=== PATIENT | female | born 1950 | race African-American/Black ===

== ENCOUNTER 2018-01-17 13:36 | Inpatient (IN) | payer MEDICARE, MEDICAID ==
[2018-01-17 15:35] VITALS: BP 118/59
[2018-01-17] MEDS ORDERED: Magnesium Hydroxide (MOM) 30 mL UDC PO PRN (15:36)
[2018-01-17] MEDS ORDERED: Maalox 30 mL Cup PO PRN (15:36)
[2018-01-17] MEDS: Insulin Detemir 100 units/mL 10mL Vial SUBQ SCH (21:28)
[2018-01-18] MEDS: Atorvastatin Calcium 10 MG TAB PO SCH (08:28)
[2018-01-18] MEDS: Multivitamin Tab PO SCH (08:28)
[2018-01-18] MEDS: Ferrous Sulfate 325 MG TAB PO SCH (08:29)
--- NOTE | 2018-01-18 09:34 | History and Physical ---
History of Present Illness - HPI Chief Complaint: not eating or drinking HPI: Patient was taking to hospital due that she was not eating, drinking or taking her meds. Vital Signs: Last Vital Signs Temp 98.2 F 01/18/18 07:03 Pulse 74 01/18/18 08:29 Resp 19 01/18/18 07:03 BP 112/64 01/18/18 08:29 Pulse Ox 96 01/18/18 07:03 Past Medical History Cardiovascular: Report: CAD, HTN Pulmonary: Report: No Pertinent Hx SUCTION ROLLER: Report: Dementia, Other (Legally blind) GI: Report: No Pertinent Hx Psych: Report: Psychosis Musculoskeletal: Report: No Pertinent Hx Rheumatologic: Report: No pertinent Hx Infectious Disease: Report: No Pertinent Hx Renal/: Report: Chronic Renal Insuff Endocrine: Report: No Pertinent Hx Dermatology: Report: No Pertinent Hx - Past Surgical History Past Surgical History: No pertinent Hx Social History Smoke: No Alcohol: None Drugs: None Lives: With Family Domestic Violence: Negative - Allergies Allergies/Adverse Reactions: Allergies Allergy/AdvReac Type Severity Reaction Status Date / Time No Known Allergies Allergy Verified 01/17/18 15:17 Review of Systems - Review of Systems Constitutional: Report: No Significant Eyes: Report: No Significant ENT: Report: No Significant Respiratory: Report: No Significant Cardiovascular: Report: No Significant Gastrointestinal: Report: No Significant Genitourinary: Report: No Significant Musculoskeletal: Report: No Significant Skin: Report: No Significant Neurological: Report: No Significant Physical Exam - Physical Exam HEENT: Report: Ears Nose Throat within normal limits, Other (Patient blind) Neck: Report: Within normal limits Cardiovascular Systems: Report: Regular, Rate and Rhythm Respiratory: Report: Breath Sounds are within normal limits Abdomen: Report: Non-tender to palpation Back: Report: Inspection of back is within normal limits. Extremities: Report: Non-tender to palpation. Skin: Report: Color of skin is within normal limits, Warm, Dry Neuro/Psych: Report: Disoriented to name time or place - Lab Results All Lab Results last 24 hours: Laboratory Results - last 24 hr 01/17/18 21:01 POC Glucose 141 H - Assessment Assessment: Patient is awake, alert, confused. Dx: Psychosis, Dementia, Legally blind, HTN, CKD. - Plan Plan: Patient is under Psychiatric care, will continue with Home meds. Will continue to monitor.
--- NOTE | 2018-01-18 15:11 | History & Physical ---
ADMIT DATE: 01/17/2018 IDENTIFYING INFORMATION: The patient is a 67-year-old female. CHIEF COMPLAINT: No answer. HISTORY OF PRESENT ILLNESS: The patient was brought on a hold for grave disability. The patient was brought on the hold and the [facility] person wanted to do a well-check on her and the patient was noted to be completely declining, unable to provide for self-care. She was unable to make safe plan for self-care, take care of herself, full of feces. Unable to clean herself and not allowing people to clean her. Drinks only fluids, has not eaten for a while, not willing to make plan for self-care. When I talked to her, she was not sure why she was here, unable to give information. She could not tell me the date. She said that she is crazy. She said she drinks vodka once a week, no more than that, but she is not a reliable historian, unpredictable, impulsive, demented, and confused, she said she is not. PAST PSYCHIATRIC HISTORY: ____ she seems to take Prozac, but she is not sure of the dose. She denies prior suicide attempt or prior hospitalization; however, she is not a good historian. She reports she is crazy. MEDICAL HISTORY: According to Dr. Ragland who evaluated her, the patient is legally blind, hypertension, coronary artery disease. ALLERGIES: The patient has no known drug allergies. MEDICATIONS: Amlodipine 10 mg daily, atorvastatin 20 mg daily, Aricept 10 mg at bedtime, iron 325 mg daily, Prozac 20 mg daily. She is also on insulin and metoprolol 25 mg twice a day, multivitamin daily, Ropinirole 1 mg daily, and Januvia 100 mg daily. FAMILY AND SOCIAL HISTORY: She is and not able to tell me how long. She has two girls. She is unsure of their age. 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 She denies family psychiatric disorder, but she is not a very good historian. MENTAL STATUS EXAMINATION: The patient is appropriately dressed, not well groomed. She was in bed, feeding herself. She was somewhat irritable. She knew that she was 67 years of age. Unable to tell me date of . She has not been eating or taking care of herself. She was covered with feces, would not clean herself, unable to make safe plan for self-care. Gravely disabled, unpredictable, impulsive, demented, confused. Long and short term memory is poor. Insight and judgment is impaired. When asked about hallucination, she denies. Current suicide, homicide ideation, denies; however, she is an unreliable historian. Insight and judgment is impaired. IMPRESSION: AXIS I: Major depression, recurrent, with no psychosis; dementia. MEDICAL DIAGNOSES: Diabetes mellitus, hyperlipidemia, hypertension, anemia, coronary artery disease. Her assets, she wants to get help. Negative for coping skills. INITIAL TREATMENT PLAN: [facility] We will adjust medication as needed. We will do group therapy, milieu therapy, and individual therapy. ESTIMATED LENGTH OF STAY: 3-7 days. DISCHARGE CRITERIA: Decrease in depression ____. JOB# [id number]
[2018-01-18] MEDS: Insulin Detemir 100 units/mL 10mL Vial SUBQ SCH (21:39)
[2018-01-19 07:17] LABS: % BASOPHILS 0.9 % (0.0-2.0); % EOSINOPHILS 3.2 % (0.0-5.0); % LYMPHOCYTES 33.8 % (20.0-50.0); % MONOCYTES 10.6 % (2.0-10.0); % NEUTROPHILS 51.5 % (40.0-80.0); BASOPHILE ABSOLUTE 0.1 Th/cumm (0-0.2); EOSINOPHILE ABSOLUTE 0.2 Th/cmm (0.1-0.4); HEMATOCRIT 27.9 % (41.0-60); HEMOGLOBIN 9.5 gm/dL (12-16); LYMPHOCYTE ABSOLUTE 2.5 Th/cmm (1.5-3.0); MEAN CELL VOLUME 90.5 fl (81-100); MEAN CORPUSCULAR HEMOGLOBIN 30.8 pg (27.0-31.0); MEAN PLATELET VOLUME 7.3 fl; MONOCYTE ABSOLUTE 0.8 Th/cmm (0.3-1.0); NEUTROPHILE ABSOLUTE 3.7 Th/cmm (1.8-8.0); PLATELET COUNT 433 Th/cmm (150-400); RED BLOOD COUNT 3.08 Mil/cmm (3.80-5.20); RED CELL DISTRIBUTION WIDTH 12.8 % (11.5-20.0); WHITE BLOOD COUNT 7.3 Th/cmm (4.8-10.8)
[2018-01-19 07:34] LABS: ALB/GLOB RATIO 1.2 (1.0-1.8); ALBUMIN 3.4 gm/dL (3.7-5.3); BILIRUBIN,TOTAL 0.4 mg/dL (0.3-1.0); CARBON DIOXIDE 25.3 mEq/L (21.0-31.0); CREATININE - SERUM 2.3 mg/dL (0.6-1.2); GFR AFRICAN-AMERICAN 27.4 ml/min (>90); GFR NON AFRICAN-AMERICAN 22.6 ml/min; POTASSIUM SERUM 4.3 mEq/L (3.5-5.1); TOTAL PROTEIN,SERUM 6.3 gm/dL (6.0-8.3)
[2018-01-19 07:35] LABS: CHOLESTEROL 121 mg/dL (<200); HDL -HIGH DENSITY LIPOPROTEIN 26 mg/dL (23-92); TRIGLYCERIDES 153 mg/dL (<150)
[2018-01-19] MEDS: Multivitamin Tab PO SCH (09:02)
[2018-01-19] MEDS: Atorvastatin Calcium 10 MG TAB PO SCH (09:02)
[2018-01-19] MEDS: Ferrous Sulfate 325 MG TAB PO SCH ×2 (09:03→17:19)
[2018-01-19 18:30] LABS: A1C % 6.7 % (4.0-6.0)
--- NOTE | 2018-01-19 19:05 | Progress Notes ---
DATE: 01/19/2018 Case was discussed with staff of the patient, reviewed records. The patient has been isolating herself. Continues to have poor insight. When I asked her ____ why she was here, she said because of her stomach. Continues to be unpredictable, impulsive, unable to take care of herself or make safe plan for self-care, unable to give accurate information, isolating herself. She was started back on the Prozac and I will be adding Aricept to her medication to help improve her memory and so far no side effects, no sedation, no nausea. We will continue to work with the patient in group therapy, milieu therapy, and adjust the medications as needed. JOB# [id number]
[2018-01-19] MEDS: Insulin Detemir 100 units/mL 10mL Vial SUBQ SCH (20:37)
[2018-01-20] MEDS: Ferrous Sulfate 325 MG TAB PO SCH ×3 (08:56→17:15)
[2018-01-20] MEDS: Atorvastatin Calcium 10 MG TAB PO SCH (08:57)
[2018-01-20] MEDS: Multivitamin Tab PO SCH (08:57)
--- NOTE | 2018-01-20 09:40 | General Progress Note ---
Subjective - Review of Systems Service Date: 01/20/18 Subjective: Patient confused Objective - Results Result Diagrams: 01/19/18 06:48 01/19/18 06:48 Recent Labs: Laboratory Last Values WBC 7.3 Th/cmm (4.8-10.8) 01/19/18 06:48 RBC 3.08 Mil/cmm (3.80-5.20) L 01/19/18 06:48 Hgb 9.5 gm/dL (12-16) L 01/19/18 06:48 Hct 27.9 % (41.0-60) L 01/19/18 06:48 MCV 90.5 fl (81-100) 01/19/18 06:48 MCH 30.8 pg (27.0-31.0) 01/19/18 06:48 MCHC Differential 34.0 pg (28.0-36.0) 01/19/18 06:48 RDW 12.8 % (11.5-20.0) 01/19/18 06:48 Plt Count 433 Th/cmm (150-400) H 01/19/18 06:48 MPV 7.3 fl 01/19/18 06:48 Neutrophils % 51.5 % (40.0-80.0) 01/19/18 06:48 Lymphocytes % 33.8 % (20.0-50.0) 01/19/18 06:48 Monocytes % 10.6 % (2.0-10.0) H 01/19/18 06:48 Eosinophils % 3.2 % (0.0-5.0) 01/19/18 06:48 Basophils % 0.9 % (0.0-2.0) 01/19/18 06:48 Sodium 137 mEq/L (136-145) 01/19/18 06:48 Potassium 4.3 mEq/L (3.5-5.1) 01/19/18 06:48 Chloride 104 mEq/L (98-107) 01/19/18 06:48 Carbon Dioxide 25.3 mEq/L (21.0-31.0) 01/19/18 06:48 Anion Gap 12.0 (7.0-16.0) 01/19/18 06:48 BUN 28 mg/dL (7-25) H 01/19/18 06:48 Creatinine 2.3 mg/dL (0.6-1.2) H 01/19/18 06:48 Est GFR ( Amer) 27.4 ml/min (>90) 01/19/18 06:48 Est GFR (Non-Af Amer) 22.6 ml/min 01/19/18 06:48 BUN/Creatinine Ratio 12.2 01/19/18 06:48 Glucose 89 mg/dL (70-105) 01/19/18 06:48 POC Glucose 212 MG/DL (70 - 105) H 01/19/18 19:57 Hemoglobin A1c % 6.7 % (4.0-6.0) H 01/19/18 06:48 Calcium 9.0 mg/dL (8.6-10.3) 01/19/18 06:48 Total Bilirubin 0.4 mg/dL (0.3-1.0) 01/19/18 06:48 AST 14 U/L (13-39) 01/19/18 06:48 ALT 16 U/L (7-52) 01/19/18 06:48 Alkaline Phosphatase 61 U/L (34-104) 01/19/18 06:48 Total Protein 6.3 gm/dL (6.0-8.3) 01/19/18 06:48 Albumin 3.4 gm/dL (3.7-5.3) L 01/19/18 06:48 Globulin 2.9 gm/dL 01/19/18 06:48 Albumin/Globulin Ratio 1.2 (1.0-1.8) 01/19/18 06:48 Triglycerides 153 mg/dL (<150) H 01/19/18 06:48 Cholesterol 121 mg/dL (<200) 01/19/18 06:48 LDL Cholesterol Direct 57 mg/dL (75-193) L 01/19/18 06:48 HDL Cholesterol 26 mg/dL (23-92) 01/19/18 06:48 TSH 1.59 uIU/ml (0.34-5.60) 01/19/18 06:48 - Physical Exam Vitals and I&O: Vital Signs Temp 97.5 F 01/18/18 19:59 Pulse 58 01/20/18 08:57 Resp 18 01/18/18 19:59 BP 122/52 01/20/18 08:57 Pulse Ox 97 01/18/18 19:59 Intake & Output 01/19/18 01/20/18 01/20/18 18:59 06:59 18:59 Intake Total 1500 Balance 1500 Intake: Oral 1500 Other: # Voids 3 # Bowel Movements 1 Active Medications: Current Medications Acetaminophen (Tylenol) 650 mg PO Q4HR PRN PRN Reason: Mild Pain / Temp above 100 Stop: 03/18/18 15:35 Al Hydrox/Mg Hydrox/Simethicone (Maalox) 30 ml PO Q4HR PRN PRN Reason: GI DISTRESS Stop: 03/18/18 15:35 Amlodipine Besylate (Norvasc) 10 mg PO DAILY [facility] Stop: 03/19/18 08:59 Last Admin: 01/20/18 08:57 Dose: Not Given Atorvastatin Calcium (Lipitor) 20 mg PO DAILY [facility]; Protocol Stop: 03/19/18 08:59 Last Admin: 01/20/18 08:57 Dose: 20 mg Betamethasone/Clotrimazole (Lotrisone Cream) 1 appl TP BID [facility] Stop: 03/20/18 09:59 Donepezil HCl (Aricept) 10 mg PO HS [facility] Stop: 03/18/18 20:59 Last Admin: 01/19/18 20:41 Dose: 10 mg Ferrous Sulfate (Iron) 325 mg PO DAILY [facility] Stop: 03/19/18 08:59 Last Admin: 01/20/18 08:57 Dose: Not Given Ferrous Sulfate (Iron) 325 mg PO BID [facility] Stop: 03/20/18 16:59 Last Admin: 01/20/18 08:56 Dose: 325 mg Fluoxetine HCl (Prozac) 20 mg PO DAILY [facility]; Protocol Stop: 03/19/18 16:59 Last Admin: 01/20/18 08:57 Dose: 20 mg Insulin Detemir (Levemir Insulin) 10 units SUBQ HS [facility]; Protocol Stop: 03/18/18 20:59 Last Admin: 01/19/18 20:37 Dose: 10 unit Lorazepam (Ativan) 0.5 mg PO Q6HR PRN; Protocol PRN Reason: Agitation Stop: 03/18/18 19:07 Last Admin: 01/19/18 01:52 Dose: 0.5 mg Magnesium Hydroxide (Milk Of Magnesia) 30 ml PO HS PRN PRN Reason: Constipation Metoprolol Tartrate (Lopressor) 25 mg PO BID [facility] Stop: 03/18/18 16:59 Last Admin: 01/20/18 08:57 Dose: Not Given Multivitamins/Vitamin C (Theragran) 1 tab PO DAILY [facility] Stop: 03/19/18 08:59 Last Admin: 01/20/18 08:57 Dose: 1 tab Ropinirole HCl (Requip) 1 mg PO DAILY [facility] Stop: 03/19/18 08:59 Last Admin: 01/20/18 08:57 Dose: 1 mg Sitagliptin Phosphate (Januvia) 100 mg PO DAILY [facility] Stop: 03/19/18 08:59 Last Admin: 01/20/18 08:57 Dose: 100 mg Zolpidem Tartrate (Ambien) 5 mg PO HS PRN PRN Reason: Insomnia Stop: 03/18/18 15:35 Last Admin: 01/19/18 20:41 Dose: 5 mg General: Alert, Other (Confused) HEENT: Atraumatic Neck: Supple Cardiovascular: Regular rate Lungs: Clear to auscultation Abdomen: Bowel sounds, Soft Extremities: Other (No edema) Neurological: Other (Unstable gait) Skin: Other (Warm and dry) Psych/Mental Status: Other (Confused) Assessment/Plan - Assessment Assessment: Patient is awake, alert, confused. Dx: Psychosis, Dementia, Legally blind, HTN, CKD. - Plan Plan: Patient is under Psychiatric care, will continue with Home meds. Will continue to monitor.
--- NOTE | 2018-01-20 19:59 | Progress Notes ---
DATE: 01/20/2018 Case was discussed with staff of the patient, reviewed records. The patient continues to be confused, demented, unable to take care of herself or participate in a meaningful conversation or make a safe plan for self-care with very poor memory. She is incontinent of urine. She is a high fall risk because of her age and dementing process and medication. Her medications have been reviewed and she is already on Aricept 10 mg at bedtime, Prozac 20 mg daily and insulin 10 units at bedtime subcutaneous, metoprolol 25 mg twice a day, multivitamins 1 tablet daily, Risperdal 1 mg daily and Januvia 100 mg daily. No side effects from the medication, no sedation, no nausea. We will continue outpatient group therapy, milieu therapy, adjust medication as needed. [facility]# [id number]
[2018-01-20] MEDS: Insulin Detemir 100 units/mL 10mL Vial SUBQ SCH (21:05)
[2018-01-21] MEDS: Betamethasone/Clotrimazole Cream 15 gm Tube TP SCH ×5 (08:51→17:41)
--- NOTE | 2018-01-21 08:57 | General Progress Note ---
Subjective - Review of Systems Service Date: 01/21/18 Subjective: Patient confused Objective - Results Result Diagrams: 01/19/18 06:48 01/19/18 06:48 Recent Labs: Laboratory Last Values WBC 7.3 Th/cmm (4.8-10.8) 01/19/18 06:48 RBC 3.08 Mil/cmm (3.80-5.20) L 01/19/18 06:48 Hgb 9.5 gm/dL (12-16) L 01/19/18 06:48 Hct 27.9 % (41.0-60) L 01/19/18 06:48 MCV 90.5 fl (81-100) 01/19/18 06:48 MCH 30.8 pg (27.0-31.0) 01/19/18 06:48 MCHC Differential 34.0 pg (28.0-36.0) 01/19/18 06:48 RDW 12.8 % (11.5-20.0) 01/19/18 06:48 Plt Count 433 Th/cmm (150-400) H 01/19/18 06:48 MPV 7.3 fl 01/19/18 06:48 Neutrophils % 51.5 % (40.0-80.0) 01/19/18 06:48 Lymphocytes % 33.8 % (20.0-50.0) 01/19/18 06:48 Monocytes % 10.6 % (2.0-10.0) H 01/19/18 06:48 Eosinophils % 3.2 % (0.0-5.0) 01/19/18 06:48 Basophils % 0.9 % (0.0-2.0) 01/19/18 06:48 Sodium 137 mEq/L (136-145) 01/19/18 06:48 Potassium 4.3 mEq/L (3.5-5.1) 01/19/18 06:48 Chloride 104 mEq/L (98-107) 01/19/18 06:48 Carbon Dioxide 25.3 mEq/L (21.0-31.0) 01/19/18 06:48 Anion Gap 12.0 (7.0-16.0) 01/19/18 06:48 BUN 28 mg/dL (7-25) H 01/19/18 06:48 Creatinine 2.3 mg/dL (0.6-1.2) H 01/19/18 06:48 Est GFR ( Amer) 27.4 ml/min (>90) 01/19/18 06:48 Est GFR (Non-Af Amer) 22.6 ml/min 01/19/18 06:48 BUN/Creatinine Ratio 12.2 01/19/18 06:48 Glucose 89 mg/dL (70-105) 01/19/18 06:48 POC Glucose 151 MG/DL (70 - 105) H 01/20/18 20:08 Hemoglobin A1c % 6.7 % (4.0-6.0) H 01/19/18 06:48 Calcium 9.0 mg/dL (8.6-10.3) 01/19/18 06:48 Total Bilirubin 0.4 mg/dL (0.3-1.0) 01/19/18 06:48 AST 14 U/L (13-39) 01/19/18 06:48 ALT 16 U/L (7-52) 01/19/18 06:48 Alkaline Phosphatase 61 U/L (34-104) 01/19/18 06:48 Total Protein 6.3 gm/dL (6.0-8.3) 01/19/18 06:48 Albumin 3.4 gm/dL (3.7-5.3) L 01/19/18 06:48 Globulin 2.9 gm/dL 01/19/18 06:48 Albumin/Globulin Ratio 1.2 (1.0-1.8) 01/19/18 06:48 Triglycerides 153 mg/dL (<150) H 01/19/18 06:48 Cholesterol 121 mg/dL (<200) 01/19/18 06:48 LDL Cholesterol Direct 57 mg/dL (75-193) L 01/19/18 06:48 HDL Cholesterol 26 mg/dL (23-92) 01/19/18 06:48 TSH 1.59 uIU/ml (0.34-5.60) 01/19/18 06:48 - Physical Exam Vitals and I&O: Vital Signs Temp 97.9 F 01/21/18 05:46 Pulse 57 01/21/18 08:52 Resp 20 01/21/18 05:46 BP 134/57 01/21/18 08:52 Pulse Ox 97 01/20/18 19:28 Intake & Output 01/20/18 01/21/18 01/21/18 18:59 06:59 18:59 Intake Total 360 Balance 360 Intake: Oral 360 Other: # Voids 2 # Bowel Movements 0 Stool Characteristics Formed Active Medications: Current Medications Acetaminophen (Tylenol) 650 mg PO Q4HR PRN PRN Reason: Mild Pain / Temp above 100 Stop: 03/18/18 15:35 Al Hydrox/Mg Hydrox/Simethicone (Maalox) 30 ml PO Q4HR PRN PRN Reason: GI DISTRESS Stop: 03/18/18 15:35 Amlodipine Besylate (Norvasc) 10 mg PO DAILY [facility] Stop: 03/19/18 08:59 Last Admin: 01/21/18 08:52 Dose: Not Given Atorvastatin Calcium (Lipitor) 20 mg PO DAILY [facility]; Protocol Stop: 03/19/18 08:59 Last Admin: 01/20/18 08:57 Dose: 20 mg Betamethasone/Clotrimazole (Lotrisone Cream) 1 appl TP BID [facility] Stop: 03/20/18 09:59 Last Admin: 01/21/18 08:52 Dose: Not Given Donepezil HCl (Aricept) 10 mg PO HS [facility] Stop: 03/18/18 20:59 Last Admin: 01/20/18 21:05 Dose: 10 mg Ferrous Sulfate (Iron) 325 mg PO BID [facility] Stop: 03/20/18 16:59 Last Admin: 01/20/18 17:15 Dose: 325 mg Fluoxetine HCl (Prozac) 20 mg PO DAILY [facility] [place]; Protocol Stop: 03/19/18 16:59 Last Admin: 01/20/18 08:57 Dose: 20 mg Insulin Detemir (Levemir Insulin) 10 units SUBQ HS [facility]; Protocol Stop: 03/18/18 20:59 Last Admin: 01/20/18 21:05 Dose: 10 unit Lorazepam (Ativan) 0.5 mg PO Q6HR PRN; Protocol PRN Reason: Agitation Stop: 03/18/18 19:07 Last Admin: 01/19/18 01:52 Dose: 0.5 mg Magnesium Hydroxide (Milk Of Magnesia) 30 ml PO HS PRN PRN Reason: Constipation Metoprolol Tartrate (Lopressor) 25 mg PO BID [facility] Stop: 03/18/18 16:59 Last Admin: 01/21/18 08:52 Dose: Not Given Multivitamins/Vitamin C (Theragran) 1 tab PO DAILY [facility] Stop: 03/19/18 08:59 Last Admin: 01/20/18 08:57 Dose: 1 tab Ropinirole HCl (Requip) 1 mg PO DAILY [facility] Stop: 03/19/18 08:59 Last Admin: 01/20/18 08:57 Dose: 1 mg Sitagliptin Phosphate (Januvia) 100 mg PO DAILY [facility] Stop: 03/19/18 08:59 Last Admin: 01/20/18 08:57 Dose: 100 mg Zolpidem Tartrate (Ambien) 5 mg PO HS PRN PRN Reason: Insomnia Stop: 03/18/18 15:35 Last Admin: 01/20/18 21:05 Dose: 5 mg General: Alert, Other (Confused) HEENT: Atraumatic Neck: Supple Cardiovascular: Regular rate Lungs: Clear to auscultation Abdomen: Bowel sounds, Soft Extremities: Other (No edema) Neurological: Other (Unstable gait) Skin: Other (Warm and dry) Psych/Mental Status: Other (Confused) Assessment/Plan - Assessment Assessment: Patient is awake, alert, confused. Dx: Psychosis, Dementia, Legally blind, HTN, CKD. - Plan Plan: Patient is under Psychiatric care, will continue with Home meds. Will continue to monitor.
[2018-01-21] MEDS: Atorvastatin Calcium 10 MG TAB PO SCH (09:37)
[2018-01-21] MEDS: Ferrous Sulfate 325 MG TAB PO SCH ×2 (09:37→17:41)
[2018-01-21] MEDS: Multivitamin Tab PO SCH (09:37)
[2018-01-21] MEDS: Insulin Detemir 100 units/mL 10mL Vial SUBQ SCH (20:56)
--- NOTE | 2018-01-21 23:36 | Progress Notes ---
DATE: 01/21/2018 Case discussed with staff of the patient, reviewed records. The patient continues to be confused, unable to tell me the date, where she is, she believes she recently lived in her own studio. She is demented, confused, isolating herself, unable to participate in a meaningful conversation or make a safe plan for self-care, unpredictable, impulsive. She stays in bed. She is a fall risk because of her age, weakness. Lab work showed low red cells, low hemoglobin, low hematocrit, high platelet count, high monocyte, the rest within normal range. Chemistry panel with high BUN, high creatinine, hemoglobin A1c is high at 6.7 and she has low albumin, the rest within normal range. Triglyceride is high at 163. TSH within normal range. No side effects of the medication, no sedation, no nausea, no extrapyramidal symptoms. We will continue outpatient group therapy, milieu therapy, and adjust the medications as needed. JOB# [id number]
[2018-01-22 06:14] LABS: % BASOPHILS 0.8 % (0.0-2.0); % EOSINOPHILS 2.5 % (0.0-5.0); % LYMPHOCYTES 35.7 % (20.0-50.0); % MONOCYTES 7.7 % (2.0-10.0); % NEUTROPHILS 53.3 % (40.0-80.0); BASOPHILE ABSOLUTE 0.1 Th/cumm (0-0.2); EOSINOPHILE ABSOLUTE 0.2 Th/cmm (0.1-0.4); HEMATOCRIT 28.6 % (41.0-60); HEMOGLOBIN 9.6 gm/dL (12-16); LYMPHOCYTE ABSOLUTE 2.7 Th/cmm (1.5-3.0); MEAN CELL VOLUME 90.9 fl (81-100); MEAN CORPUSCULAR HEMOGLOBIN 30.4 pg (27.0-31.0); MEAN CORPUSCULAR HGB CONC 33.4 pg (28.0-36.0); MEAN PLATELET VOLUME 7.3 fl; MONOCYTE ABSOLUTE 0.6 Th/cmm (0.3-1.0); NEUTROPHILE ABSOLUTE 4.1 Th/cmm (1.8-8.0); PLATELET COUNT 482 Th/cmm (150-400); RED BLOOD COUNT 3.15 Mil/cmm (3.80-5.20); RED CELL DISTRIBUTION WIDTH 12.9 % (11.5-20.0); WHITE BLOOD COUNT 7.7 Th/cmm (4.8-10.8)
[2018-01-22 06:43] LABS: ALB/GLOB RATIO 1.3 (1.0-1.8); ALBUMIN 3.6 gm/dL (3.7-5.3); ANION GAP 12.3 (7.0-16.0); BILIRUBIN,TOTAL 0.3 mg/dL (0.3-1.0); CALCIUM SERUM 9.1 mg/dL (8.6-10.3); CARBON DIOXIDE 24.5 mEq/L (21.0-31.0); CREATININE - SERUM 2.4 mg/dL (0.6-1.2); GFR AFRICAN-AMERICAN 26.1 ml/min (>90); GFR NON AFRICAN-AMERICAN 21.5 ml/min; POTASSIUM SERUM 4.8 mEq/L (3.5-5.1); TOTAL PROTEIN,SERUM 6.3 gm/dL (6.0-8.3)
--- NOTE | 2018-01-22 08:31 | General Progress Note ---
Subjective - Review of Systems Service Date: 01/22/18 Subjective: Patient confused Objective - Results Result Diagrams: 01/22/18 05:40 01/22/18 05:40 Recent Labs: Laboratory Last Values WBC 7.7 Th/cmm (4.8-10.8) 01/22/18 05:40 RBC 3.15 Mil/cmm (3.80-5.20) L 01/22/18 05:40 Hgb 9.6 gm/dL (12-16) L 01/22/18 05:40 Hct 28.6 % (41.0-60) L 01/22/18 05:40 MCV 90.9 fl (81-100) 01/22/18 05:40 MCH 30.4 pg (27.0-31.0) 01/22/18 05:40 MCHC Differential 33.4 pg (28.0-36.0) 01/22/18 05:40 RDW 12.9 % (11.5-20.0) 01/22/18 05:40 Plt Count 482 Th/cmm (150-400) H 01/22/18 05:40 MPV 7.3 fl 01/22/18 05:40 Neutrophils % 53.3 % (40.0-80.0) 01/22/18 05:40 Lymphocytes % 35.7 % (20.0-50.0) 01/22/18 05:40 Monocytes % 7.7 % (2.0-10.0) 01/22/18 05:40 Eosinophils % 2.5 % (0.0-5.0) 01/22/18 05:40 Basophils % 0.8 % (0.0-2.0) 01/22/18 05:40 Sodium 136 mEq/L (136-145) 01/22/18 05:40 Potassium 4.8 mEq/L (3.5-5.1) 01/22/18 05:40 Chloride 104 mEq/L (98-107) 01/22/18 05:40 Carbon Dioxide 24.5 mEq/L (21.0-31.0) 01/22/18 05:40 Anion Gap 12.3 (7.0-16.0) 01/22/18 05:40 BUN 34 mg/dL (7-25) H 01/22/18 05:40 Creatinine 2.4 mg/dL (0.6-1.2) H 01/22/18 05:40 Est GFR ( Amer) 26.1 ml/min (>90) 01/22/18 05:40 Est GFR (Non-Af Amer) 21.5 ml/min 01/22/18 05:40 BUN/Creatinine Ratio 14.2 01/22/18 05:40 Glucose 90 mg/dL (70-105) 01/22/18 05:40 POC Glucose 151 MG/DL (70 - 105) H 01/20/18 20:08 Hemoglobin A1c % 6.7 % (4.0-6.0) H 01/19/18 06:48 Calcium 9.1 mg/dL (8.6-10.3) 01/22/18 05:40 Total Bilirubin 0.3 mg/dL (0.3-1.0) 01/22/18 05:40 AST 14 U/L (13-39) 01/22/18 05:40 ALT 17 U/L (7-52) 01/22/18 05:40 Alkaline Phosphatase 67 U/L (34-104) 01/22/18 05:40 Total Protein 6.3 gm/dL (6.0-8.3) 01/22/18 05:40 Albumin 3.6 gm/dL (3.7-5.3) L 01/22/18 05:40 Globulin 2.7 gm/dL 01/22/18 05:40 Albumin/Globulin Ratio 1.3 (1.0-1.8) 01/22/18 05:40 Triglycerides 153 mg/dL (<150) H 01/19/18 06:48 Cholesterol 121 mg/dL (<200) 01/19/18 06:48 LDL Cholesterol Direct 57 mg/dL (75-193) L 01/19/18 06:48 HDL Cholesterol 26 mg/dL (23-92) 01/19/18 06:48 TSH 1.59 uIU/ml (0.34-5.60) 01/19/18 06:48 - Physical Exam Vitals and I&O: Vital Signs Temp 97.6 F 01/21/18 20:15 Pulse 82 01/21/18 20:15 Resp 20 01/21/18 20:15 BP 100/57 01/21/18 20:15 Pulse Ox 96 01/21/18 20:15 Intake & Output 01/21/18 01/22/18 01/22/18 18:59 06:59 18:59 Intake Total 480 Balance 480 Intake: Oral 480 Other: # Voids 2 Active Medications: Current Medications Acetaminophen (Tylenol) 650 mg PO Q4HR PRN PRN Reason: Mild Pain / Temp above 100 Stop: 03/18/18 15:35 Al Hydrox/Mg Hydrox/Simethicone (Maalox) 30 ml PO Q4HR PRN PRN Reason: GI DISTRESS Stop: 03/18/18 15:35 Amlodipine Besylate (Norvasc) 10 mg PO DAILY [facility] Stop: 03/19/18 08:59 Last Admin: 01/21/18 08:52 Dose: Not Given Atorvastatin Calcium (Lipitor) 20 mg PO DAILY [facility]; Protocol Stop: 03/19/18 08:59 Last Admin: 01/21/18 09:37 Dose: 20 mg Betamethasone/Clotrimazole (Lotrisone Cream) 1 appl TP BID [facility] Stop: 03/20/18 09:59 Last Admin: 01/21/18 17:41 Dose: 1 appl Donepezil HCl (Aricept) 10 mg PO HS [facility] Stop: 03/18/18 20:59 Last Admin: 01/21/18 20:56 Dose: 10 mg Ferrous Sulfate (Iron) 325 mg PO BID [facility] Stop: 03/20/18 16:59 Last Admin: 01/21/18 17:41 Dose: 325 mg Fluoxetine HCl (Prozac) 20 mg PO DAILY [facility]; Protocol Stop: 03/19/18 16:59 Last Admin: 01/21/18 09:37 Dose: 20 mg Insulin Detemir (Levemir Insulin) 10 units SUBQ HS [facility]; Protocol Stop: 03/18/18 20:59 Last Admin: 01/21/18 20:56 Dose: 10 unit Lorazepam (Ativan) 0.5 mg PO Q6HR PRN; Protocol PRN Reason: Agitation Stop: 03/18/18 19:07 Last Admin: 01/19/18 01:52 Dose: 0.5 mg Magnesium Hydroxide (Milk Of Magnesia) 30 ml PO HS PRN PRN Reason: Constipation Metoprolol Tartrate (Lopressor) 25 mg PO BID [facility] Stop: 03/18/18 16:59 Last Admin: 01/21/18 17:41 Dose: 25 mg Multivitamins/Vitamin C (Theragran) 1 tab PO DAILY [facility] Stop: 03/19/18 08:59 Last Admin: 01/21/18 09:37 Dose: 1 tab Ropinirole HCl (Requip) 1 mg PO DAILY [facility] Stop: 03/19/18 08:59 Last Admin: 01/21/18 09:37 Dose: 1 mg Sitagliptin Phosphate (Januvia) 100 mg PO DAILY [facility] Stop: 03/19/18 08:59 Last Admin: 01/21/18 09:37 Dose: 100 mg Zolpidem Tartrate (Ambien) 5 mg PO HS PRN PRN Reason: Insomnia Stop: 03/18/18 15:35 Last Admin: 01/20/18 21:05 Dose: 5 mg General: Alert, Other (Confused) HEENT: Atraumatic Neck: Supple Cardiovascular: Regular rate Lungs: Clear to auscultation Abdomen: Bowel sounds, Soft Extremities: Other (No edema) Neurological: Other (Unstable gait) Skin: Other (Warm and dry) Psych/Mental Status: Other (Confused) Assessment/Plan - Assessment Assessment: Patient is awake, alert, confused. Creatinine continue high. Dx: Psychosis, Dementia, Legally blind, HTN, DM, CKD. - Plan Plan: Patient is under Psychiatric care, will continue with Home meds. Consult with Nephro is requested. Will continue to monitor. Nutritional Asmnt/Malnutr-PDOC - Dietary Evaluation Malnutrition Findings (Please click <Entered> for more info): Nutritional Asmnt/Malnutrition Start: 01/21/18 14: 27 Text: Status: Complete Freq: Protocol: Document 01/21/18 14:27 LCHENG (Rec: 01/21/18 14:35 [email or web address] [email or web address]) Nutritional Asmnt/Malnutrition Patient General Information Nutritional Screening Moderate Risk Diagnosis psychosis Pertinent Medical Hx/Surgical Hx CAD, HTN, psychosis, dementia, chronic renal insuff Subjective Information Pt seen lying in bed at time of visit, awake. Pt reported appetite good, food ok. Per EMR, PO intake 100% of meals. No wt record in EMR. Current Diet Order/ Nutrition Support low sodium 2gm Pertinent Medications lipitor, iron, levemir, theragran, januvia Pertinent Labs 01/19 BUN 28, Cr 2.3, glucose 89, A1c 6.7, POC 212 7/ POC 151 Nutritional Hx/Data Height 1.68 m Height (Calculated Centimeters) 167.6 GI Symptoms Skin Integrity/Comment: intact Current %PO Good (75-100%) Estimated Nutritional Goals Calories/Kcals/Kg 25-30 based on IBW 59kg Kcals Calculated 6972-5050 Protein g/k.6-0.8 Protein Calculated 35-47 Fluid: ml 1475-1770ml (1ml/kcal) Nutritional Problem 1. Problem Problem altered nutrition related labs Etiology endocrine dysfunction, chronic renal insuff Signs/Symptoms: POC 151-212, A1c 6.7, BUN 28, Cr 2.3 Malnutrition Alert Is there a minimum of two criteria No selected? Query Text:Check all the applicable criteria. A minimum of two criteria are recommended for diagnosis of either severe or non-severe malnutrition. Malnutrition Related to Morbid Obesity Malnutrition related to morbid obesity No Intervention/Recommendation Comments 1. Consider renal diet d/t elevated BUN and Crea. If glucose continue high, will consider adding CCHO diet. 2. Monitor PO intake, wt, labs and skin integrity 3. F/U as low risk in 7 days, 01/28 Expected Outcomes/Goals Expected Outcomes/Goals 1. PO intake to meet at least 75% of nutritional needs. 2. Wt stability, skin to remain intact, labs to approach WNL.
[2018-01-22] MEDS: Betamethasone/Clotrimazole Cream 15 gm Tube TP SCH ×2 (09:27→16:36)
[2018-01-22] MEDS: Multivitamin Tab PO SCH (09:27)
[2018-01-22] MEDS: Ferrous Sulfate 325 MG TAB PO SCH ×2 (09:27→16:37)
[2018-01-22] MEDS: Atorvastatin Calcium 10 MG TAB PO SCH (09:27)
[2018-01-22] MEDS: Insulin Detemir 100 units/mL 10mL Vial SUBQ SCH (20:51)
--- NOTE | 2018-01-22 22:39 | Consultation ---
DATE OF CONSULTATION: 01/22/2018 ATTENDING PHYSICIAN: Dr. Nettie Ragland. REASON FOR CONSULTATION: Worsening kidney function, electrolyte imbalance and fluid management. HISTORY OF PRESENT ILLNESS: This is a 67-year-old -[place] female with past medical history of chronic kidney disease, who was brought in because of depression. A few days prior to admission, the patient's personality started to decline. She was not able to perform personal hygiene. She was not able to clean herself and was unkempt. Her oral intake had also diminished, mostly solids, but still was able to drink some fluids. She was then eventually brought to [facility] because of worsening symptoms. Her BUN/creatinine upon admission were 28/2.3. However, her BUN/creatinine today were 34/2.4. She has no history of nausea and vomiting as well as diarrhea. PAST MEDICAL HISTORY: 1. Chronic kidney disease. 2. Type 2 diabetes mellitus. 3. Essential hypertension. 4. Dyslipidemia. 5. Anemia of chronic kidney disease. 6. Coronary artery disease. 7. Partial blindness. CURRENT MEDICATIONS: She is currently on acetaminophen, amlodipine, atorvastatin, donepezil, ferrous sulfate, fluoxetine, detemir, lorazepam, metoprolol, multivitamins, ropinirole, sitagliptin, zolpidem. ALLERGIES: No known drug allergies. SOCIAL AND FAMILY HISTORY: I was not able to obtain directly from the patient because she is nonverbal at the present time. REVIEW OF SYSTEMS: Again, I was not able to obtain from the patient because she was not cooperative. PHYSICAL EXAMINATION: GENERAL: The patient is awake, not in any form of distress. VITAL SIGNS: Her blood pressure is 122/53, pulse 56, temperature 98 degrees. SKIN: Good turgor, warm, no rash, no jaundice appreciated. HEENT: Head normocephalic, atraumatic. Eyes: Extraocular muscles intact. Pupils equal, round, reactive to light and accommodates. Anicteric sclerae. Pale conjunctivae. Nose, midline nasal septum. Mouth: Moist mucosa with poor dentition. NECK: Supple, no adenopathy, no thyromegaly, no bruits. Trachea palpated in the midline. CHEST AND CVS: S1, S2. No rub, murmur nor gallop appreciated. Point of maximal impulse fifth intercostal space, left midclavicular line. No abdominal or femoral bruits appreciated. LUNGS: Equal expansion. No use of accessory muscles. No supraclavicular retractions. Decreased breath sounds, clear to auscultation without any wheeze. Breast symmetrical, without any discharge. ABDOMEN: Globular, soft. Positive for bowel sounds. No bruits either diastolic or systolic. RECTAL: The patient refused. GENITOURINARY: Normal appearing female genitalia. MUSCULOSKELETAL: No effusions present in her joints, but unable to assess her range of motion. EXTREMITIES: No evidence of any edema, cyanosis nor clubbing with palpable femoral, but unable to fully appreciate popliteal and dorsalis pedis pulses. NEUROLOGIC: The patient is awake, but remains uncooperative, so I was not able to pursue further my neuro exam. LABORATORY DATA: Did reveal sodium 136, potassium 4.8, chloride 104, bicarbonate 24, BUN 34, creatinine 2.4, glucose 90. Hemoglobin A1c 6.7%. Albumin is 3.6. TSH 1.59. White count 7.7, hemoglobin 9.6, hematocrit 28.6, platelets 482, polys 53.3%. IMPRESSION: 1. Major depression. 2. Failure to thrive. 3. Alzheimer dementia. 4. Anemia of chronic disease. 5. Coronary artery disease. 6. Chronic kidney disease secondary to diabetic nephropathy with some underlying hypertensive nephrosclerosis. 7. Type 2 diabetes mellitus with chronic kidney disease. 8. Essential hypertension with chronic kidney disease. 9. Dyslipidemia. PLAN: 1. Encouraged to increase p.o. fluid. 2. Urinalysis. 3. Urine spot sodium, eosinophils, and creatinine. 4. Urine microalbumin to creatinine ratio. 5. Kidney function seems to be stable at the present time; however, if kidney function deteriorates, we will request for a renal ultrasound. Thank you, Dr. Ragland for this consult. We will follow the patient closely with you. JOB# [id number]
--- NOTE | 2018-01-22 23:52 | Progress Notes ---
DATE: 01/22/2018 SUBJECTIVE: Case was discussed with staff of the patient, reviewed records. The patient continues to be confused, unable to make safe plan for self-care, isolating herself, at times easily agitated, can take care of her ADLs. Working on placement. Family lives close to ____; though, she reports that she does not see her children often so, but they wanted to be close to them and the staff is working on it. She continues to have episodes of being irritable, feeling lonely. She is sleeping better, eating better. No side effects with the medication, no sedation, no nausea. We will continue to work with the patient in group therapy, milieu therapy, and adjust the medications as needed. JOB# [id number]
[2018-01-23] MEDS: Ferrous Sulfate 325 MG TAB PO SCH ×2 (09:25→16:50)
[2018-01-23] MEDS: Multivitamin Tab PO SCH (09:26)
[2018-01-23] MEDS: Atorvastatin Calcium 10 MG TAB PO SCH (09:26)
[2018-01-23] MEDS: Betamethasone/Clotrimazole Cream 15 gm Tube TP SCH ×2 (09:39→16:50)
--- NOTE | 2018-01-23 12:06 | General Progress Note ---
Subjective - Review of Systems Service Date: 01/23/18 Subjective: alert, supine, comfortable Objective - Results Result Diagrams: 01/22/18 05:40 01/22/18 05:40 Recent Labs: Laboratory Last Values WBC 7.7 Th/cmm (4.8-10.8) 01/22/18 05:40 RBC 3.15 Mil/cmm (3.80-5.20) L 01/22/18 05:40 Hgb 9.6 gm/dL (12-16) L 01/22/18 05:40 Hct 28.6 % (41.0-60) L 01/22/18 05:40 MCV 90.9 fl (81-100) 01/22/18 05:40 MCH 30.4 pg (27.0-31.0) 01/22/18 05:40 MCHC Differential 33.4 pg (28.0-36.0) 01/22/18 05:40 RDW 12.9 % (11.5-20.0) 01/22/18 05:40 Plt Count 482 Th/cmm (150-400) H 01/22/18 05:40 MPV 7.3 fl 01/22/18 05:40 Neutrophils % 53.3 % (40.0-80.0) 01/22/18 05:40 Lymphocytes % 35.7 % (20.0-50.0) 01/22/18 05:40 Monocytes % 7.7 % (2.0-10.0) 01/22/18 05:40 Eosinophils % 2.5 % (0.0-5.0) 01/22/18 05:40 Basophils % 0.8 % (0.0-2.0) 01/22/18 05:40 Sodium 136 mEq/L (136-145) 01/22/18 05:40 Potassium 4.8 mEq/L (3.5-5.1) 01/22/18 05:40 Chloride 104 mEq/L (98-107) 01/22/18 05:40 Carbon Dioxide 24.5 mEq/L (21.0-31.0) 01/22/18 05:40 Anion Gap 12.3 (7.0-16.0) 01/22/18 05:40 BUN 34 mg/dL (7-25) H 01/22/18 05:40 Creatinine 2.4 mg/dL (0.6-1.2) H 01/22/18 05:40 Est GFR ( Amer) 26.1 ml/min (>90) 01/22/18 05:40 Est GFR (Non-Af Amer) 21.5 ml/min 01/22/18 05:40 BUN/Creatinine Ratio 14.2 01/22/18 05:40 Glucose 90 mg/dL (70-105) 01/22/18 05:40 POC Glucose 204 MG/DL (70 - 105) H 01/22/18 20:49 Hemoglobin A1c % 6.7 % (4.0-6.0) H 01/19/18 06:48 Calcium 9.1 mg/dL (8.6-10.3) 01/22/18 05:40 Phosphorus 4.8 mg/dL (2.5-5.0) 01/23/18 07:15 Total Bilirubin 0.3 mg/dL (0.3-1.0) 01/22/18 05:40 AST 14 U/L (13-39) 01/22/18 05:40 ALT 17 U/L (7-52) 01/22/18 05:40 Alkaline Phosphatase 67 U/L (34-104) 01/22/18 05:40 Total Protein 6.3 gm/dL (6.0-8.3) 01/22/18 05:40 Albumin 3.6 gm/dL (3.7-5.3) L 01/22/18 05:40 Globulin 2.7 gm/dL 01/22/18 05:40 Albumin/Globulin Ratio 1.3 (1.0-1.8) 01/22/18 05:40 Triglycerides 153 mg/dL (<150) H 01/19/18 06:48 Cholesterol 121 mg/dL (<200) 01/19/18 06:48 LDL Cholesterol Direct 57 mg/dL (75-193) L 01/19/18 06:48 HDL Cholesterol 26 mg/dL (23-92) 01/19/18 06:48 TSH 1.55 uIU/ml (0.34-5.60) 01/23/18 07:15 - Physical Exam Vitals and I&O: Vital Signs Temp 96.5 F 01/23/18 05:31 Pulse 66 01/23/18 09:36 Resp 20 01/23/18 05:31 BP 139/69 01/23/18 09:36 Pulse Ox 97 01/23/18 05:31 Intake & Output 01/22/18 01/23/18 01/23/18 18:59 06:59 18:59 Intake Total 360 Balance 360 Intake: Oral 360 Other: # Voids 1 # Bowel Movements 0 Active Medications: Current Medications Acetaminophen (Tylenol) 650 mg PO Q4HR PRN PRN Reason: Mild Pain / Temp above 100 Stop: 03/18/18 15:35 Al Hydrox/Mg Hydrox/Simethicone (Maalox) 30 ml PO Q4HR PRN PRN Reason: GI DISTRESS Stop: 03/18/18 15:35 Amlodipine Besylate (Norvasc) 10 mg PO DAILY [facility] Stop: 03/19/18 08:59 Last Admin: 01/23/18 09:36 Dose: 10 mg Atorvastatin Calcium (Lipitor) 20 mg PO DAILY [facility]; Protocol Stop: 03/19/18 08:59 Last Admin: 01/23/18 09:26 Dose: 20 mg Betamethasone/Clotrimazole (Lotrisone Cream) 1 appl TP BID [facility] Stop: 03/20/18 09:59 Last Admin: 01/23/18 09:39 Dose: 1 appl Donepezil HCl (Aricept) 10 mg PO HS [facility] Stop: 03/18/18 20:59 Last Admin: 01/22/18 20:52 Dose: 10 mg Ferrous Sulfate (Iron) 325 mg PO BID [facility] Stop: 03/20/18 16:59 Last Admin: 01/23/18 09:25 Dose: 325 mg Fluoxetine HCl (Prozac) 20 mg PO DAILY [facility]; Protocol Stop: 03/19/18 16:59 Last Admin: 01/23/18 09:25 Dose: 20 mg Insulin Detemir (Levemir Insulin) 10 units SUBQ HS [facility]; Protocol Stop: 03/18/18 20:59 Last Admin: 01/22/18 20:51 Dose: 10 unit Lorazepam (Ativan) 0.5 mg PO Q6HR PRN; Protocol PRN Reason: Agitation Stop: 03/18/18 19:07 Last Admin: 01/19/18 01:52 Dose: 0.5 mg Magnesium Hydroxide (Milk Of Magnesia) 30 ml PO HS PRN PRN Reason: Constipation Metoprolol Tartrate (Lopressor) 25 mg PO BID [facility] Stop: 03/18/18 16:59 Last Admin: 01/23/18 09:27 Dose: 25 mg Multivitamins/Vitamin C (Theragran) 1 tab PO DAILY [facility] Stop: 03/19/18 08:59 Last Admin: 01/23/18 09:26 Dose: 1 tab Ropinirole HCl (Requip) 1 mg PO DAILY [facility] Stop: 03/19/18 08:59 Last Admin: 01/23/18 11:17 Dose: 1 mg Sitagliptin Phosphate (Januvia) 100 mg PO DAILY [facility] Stop: 03/19/18 08:59 Last Admin: 01/23/18 11:17 Dose: 100 mg Zolpidem Tartrate (Ambien) 5 mg PO HS PRN PRN Reason: Insomnia Stop: 03/18/18 15:35 Last Admin: 01/20/18 21:05 Dose: 5 mg General: Alert, Other (Confused) HEENT: Atraumatic Neck: Supple Cardiovascular: Regular rate Lungs: Clear to auscultation Abdomen: Bowel sounds, Soft Extremities: Other (No edema) Neurological: Other (Unstable gait) Skin: Other (Warm and dry) Psych/Mental Status: Other (Confused) Assessment/Plan - Assessment Assessment: CKD Major Depression Alzh Dementia Anemia of CD CAD T2DM w/ CKD Ess Htn w/ CKD Dyslipidemia - Plan Plan: Lab - Result Diagrams 01/22/18 05:40 01/22/18 05:40 Current Medications Acetaminophen (Tylenol) 650 mg PO Q4HR PRN PRN Reason: Mild Pain / Temp above 100 Stop: 03/18/18 15:35 Al Hydrox/Mg Hydrox/Simethicone (Maalox) 30 ml PO Q4HR PRN PRN Reason: GI DISTRESS Stop: 03/18/18 15:35 Amlodipine Besylate (Norvasc) 10 mg PO DAILY [facility] Stop: 03/19/18 08:59 Last Admin: 01/23/18 09:36 Dose: 10 mg Atorvastatin Calcium (Lipitor) 20 mg PO DAILY [facility]; Protocol Stop: 03/19/18 08:59 Last Admin: 01/23/18 09:26 Dose: 20 mg Betamethasone/Clotrimazole (Lotrisone Cream) 1 appl TP BID [facility] Stop: 03/20/18 09:59 Last Admin: 01/23/18 09:39 Dose: 1 appl Donepezil HCl (Aricept) 10 mg PO HS [facility] Stop: 03/18/18 20:59 Last Admin: 01/22/18 20:52 Dose: 10 mg Ferrous Sulfate (Iron) 325 mg PO BID [facility] Stop: 03/20/18 16:59 Last Admin: 01/23/18 09:25 Dose: 325 mg Fluoxetine HCl (Prozac) 20 mg PO DAILY [facility]; Protocol Stop: 03/19/18 16:59 Last Admin: 01/23/18 09:25 Dose: 20 mg Insulin Detemir (Levemir Insulin) 10 units SUBQ HS [facility]; Protocol Stop: 03/18/18 20:59 Last Admin: 01/22/18 20:51 Dose: 10 unit Lorazepam (Ativan) 0.5 mg PO Q6HR PRN; Protocol PRN Reason: Agitation Stop: 03/18/18 19:07 Last Admin: 01/19/18 01:52 Dose: 0.5 mg Magnesium Hydroxide (Milk Of Magnesia) 30 ml PO HS PRN PRN Reason: Constipation Metoprolol Tartrate (Lopressor) 25 mg PO BID [facility] Stop: 03/18/18 16:59 Last Admin: 01/23/18 09:27 Dose: 25 mg Multivitamins/Vitamin C (Theragran) 1 tab PO DAILY [facility] Stop: 03/19/18 08:59 Last Admin: 01/23/18 09:26 Dose: 1 tab Ropinirole HCl (Requip) 1 mg PO DAILY [facility] Stop: 03/19/18 08:59 Last Admin: 01/23/18 11:17 Dose: 1 mg Sitagliptin Phosphate (Januvia) 100 mg PO DAILY [facility] Stop: 03/19/18 08:59 Last Admin: 01/23/18 11:17 Dose: 100 mg Zolpidem Tartrate (Ambien) 5 mg PO HS PRN PRN Reason: Insomnia Stop: 03/18/18 15:35 Last Admin: 01/20/18 21:05 Dose: 5 mg Lab - Result Diagrams 01/22/18 05:40 01/22/18 05:40 kidney fnc remain stable w/ BUN/CR of 34/2.4 start Epo for anemia Nutritional Asmnt/Malnutr-PDOC - Dietary Evaluation Malnutrition Findings (Please click <Entered> for more info): Nutritional Asmnt/Malnutrition Start: 01/21/18 14: 27 Text: Status: Complete Freq: Protocol: Document 01/21/18 14:27 ALLANSUZETTE (Rec: 01/21/18 14:35 ALLANSUZETTE [email or web address]) Nutritional Asmnt/Malnutrition Patient General Information Nutritional Screening Moderate Risk Diagnosis psychosis Pertinent Medical Hx/Surgical Hx CAD, HTN, psychosis, dementia, chronic renal insuff Subjective Information Pt seen lying in bed at time of visit, awake. Pt reported appetite good, food ok. Per EMR, PO intake 100% of meals. No wt record in EMR. Current Diet Order/ Nutrition Support low sodium 2gm Pertinent Medications lipitor, iron, levemir, theragran, januvia Pertinent Labs 01/19 BUN 28, Cr 2.3, glucose 89, A1c 6.7, POC 212 01/20 POC 151 Nutritional Hx/Data Height 1.68 m Height (Calculated Centimeters) 167.6 GI Symptoms Skin Integrity/Comment: intact Current %PO Good (75-100%) Estimated Nutritional Goals Calories/Kcals/Kg 25-30 based on IBW 59kg Kcals Calculated 4405-1833 Protein g/k.6-0.8 Protein Calculated 35-47 Fluid: ml 1475-1770ml (1ml/kcal) Nutritional Problem 1. Problem Problem altered nutrition related labs Etiology endocrine dysfunction, chronic renal insuff Signs/Symptoms: POC 151-212, A1c 6.7, BUN 28, Cr 2.3 Malnutrition Alert Is there a minimum of two criteria No selected? Query Text:Check all the applicable criteria. A minimum of two criteria are recommended for diagnosis of either severe or non-severe malnutrition. Malnutrition Related to Morbid Obesity Malnutrition related to morbid obesity No Intervention/Recommendation Comments 1. Consider renal diet d/t elevated BUN and Crea. If glucose continue high, will consider adding CCHO diet. 2. Monitor PO intake, wt, labs and skin integrity 3. F/U as low risk in 7 days, 01/28 Expected Outcomes/Goals Expected Outcomes/Goals 1. PO intake to meet at least 75% of nutritional needs. 2. Wt stability, skin to remain intact, labs to approach WNL.
[2018-01-23] MEDS: Epoetin Alfa 20000 Units/mL Vial SUBQ SCH (13:19)
[2018-01-23] MEDS: Insulin Detemir 100 units/mL 10mL Vial SUBQ SCH (21:14)
--- NOTE | 2018-01-24 00:09 | Progress Notes ---
DATE: 01/23/2018 Case was discussed with staff of the patient, reviewed records. The patient continues to be confused, demented, continues to have poor insight. Continues to be unable to make safe plan for self-care, confused, unable to tell me the date, why she is here. Working on placement to go to a SNF facility. She is already on Aricept 10 mg at bedtime and Prozac 20 mg a day. She has no side effect from the medication, no sedation, no nausea and the patient continues to be unable to participate in meaningful conversation. We will continue to work with the patient in group therapy and milieu therapy. Adjust medications as needed. JOB# [id number]
[2018-01-24] MEDS: Atorvastatin Calcium 10 MG TAB PO SCH (10:11)
[2018-01-24] MEDS: Ferrous Sulfate 325 MG TAB PO SCH ×2 (10:12→16:51)
[2018-01-24] MEDS: Multivitamin Tab PO SCH (10:13)
[2018-01-24] MEDS: Betamethasone/Clotrimazole Cream 15 gm Tube TP SCH ×2 (10:23→16:51)
--- NOTE | 2018-01-24 12:06 | General Progress Note ---
Subjective - Review of Systems Service Date: 01/24/18 Subjective: Patient confused Objective - Results Result Diagrams: 01/22/18 05:40 01/22/18 05:40 Recent Labs: Laboratory Last Values WBC 7.7 Th/cmm (4.8-10.8) 01/22/18 05:40 RBC 3.15 Mil/cmm (3.80-5.20) L 01/22/18 05:40 Hgb 9.6 gm/dL (12-16) L 01/22/18 05:40 Hct 28.6 % (41.0-60) L 01/22/18 05:40 MCV 90.9 fl (81-100) 01/22/18 05:40 MCH 30.4 pg (27.0-31.0) 01/22/18 05:40 MCHC Differential 33.4 pg (28.0-36.0) 01/22/18 05:40 RDW 12.9 % (11.5-20.0) 01/22/18 05:40 Plt Count 482 Th/cmm (150-400) H 01/22/18 05:40 MPV 7.3 fl 01/22/18 05:40 Neutrophils % 53.3 % (40.0-80.0) 01/22/18 05:40 Lymphocytes % 35.7 % (20.0-50.0) 01/22/18 05:40 Monocytes % 7.7 % (2.0-10.0) 01/22/18 05:40 Eosinophils % 2.5 % (0.0-5.0) 01/22/18 05:40 Basophils % 0.8 % (0.0-2.0) 01/22/18 05:40 Sodium 136 mEq/L (136-145) 01/22/18 05:40 Potassium 4.8 mEq/L (3.5-5.1) 01/22/18 05:40 Chloride 104 mEq/L (98-107) 01/22/18 05:40 Carbon Dioxide 24.5 mEq/L (21.0-31.0) 01/22/18 05:40 Anion Gap 12.3 (7.0-16.0) 01/22/18 05:40 BUN 34 mg/dL (7-25) H 01/22/18 05:40 Creatinine 2.4 mg/dL (0.6-1.2) H 01/22/18 05:40 Est GFR ( Amer) 26.1 ml/min (>90) 01/22/18 05:40 Est GFR (Non-Af Amer) 21.5 ml/min 01/22/18 05:40 BUN/Creatinine Ratio 14.2 01/22/18 05:40 Glucose 90 mg/dL (70-105) 01/22/18 05:40 POC Glucose 128 MG/DL (70 - 105) H 01/23/18 21:01 Hemoglobin A1c % 6.7 % (4.0-6.0) H 01/19/18 06:48 Calcium 9.1 mg/dL (8.6-10.3) 01/22/18 05:40 Phosphorus 4.8 mg/dL (2.5-5.0) 01/23/18 07:15 Total Bilirubin 0.3 mg/dL (0.3-1.0) 01/22/18 05:40 AST 14 U/L (13-39) 01/22/18 05:40 ALT 17 U/L (7-52) 01/22/18 05:40 Alkaline Phosphatase 67 U/L (34-104) 01/22/18 05:40 Total Protein 6.3 gm/dL (6.0-8.3) 01/22/18 05:40 Albumin 3.6 gm/dL (3.7-5.3) L 01/22/18 05:40 Globulin 2.7 gm/dL 01/22/18 05:40 Albumin/Globulin Ratio 1.3 (1.0-1.8) 01/22/18 05:40 Triglycerides 153 mg/dL (<150) H 01/19/18 06:48 Cholesterol 121 mg/dL (<200) 01/19/18 06:48 LDL Cholesterol Direct 57 mg/dL (75-193) L 01/19/18 06:48 HDL Cholesterol 26 mg/dL (23-92) 01/19/18 06:48 TSH 1.55 uIU/ml (0.34-5.60) 01/23/18 07:15 - Physical Exam Vitals and I&O: Vital Signs Temp 97.6 F 01/23/18 20:00 Pulse 60 01/24/18 10:12 Resp 19 07/04/18 20:00 BP 134/57 01/24/18 10:12 Pulse Ox 98 01/23/18 20:00 Intake & Output 01/23/18 01/24/18 01/24/18 18:59 06:59 18:59 Intake Total 240 Balance 240 Intake: Oral 240 Other: # Voids 3 # Bowel Movements 0 Active Medications: Current Medications Acetaminophen (Tylenol) 650 mg PO Q4HR PRN PRN Reason: Mild Pain / Temp above 100 Stop: 03/18/18 15:35 Al Hydrox/Mg Hydrox/Simethicone (Maalox) 30 ml PO Q4HR PRN PRN Reason: GI DISTRESS Stop: 03/18/18 15:35 Amlodipine Besylate (Norvasc) 10 mg PO DAILY [facility] Stop: 03/19/18 08:59 Last Admin: 01/24/18 10:09 Dose: 10 mg Atorvastatin Calcium (Lipitor) 20 mg PO DAILY [facility]; Protocol Stop: 03/19/18 08:59 Last Admin: 01/24/18 10:11 Dose: 20 mg Betamethasone/Clotrimazole (Lotrisone Cream) 1 appl TP BID [facility] Stop: 03/20/18 09:59 Last Admin: 01/24/18 10:23 Dose: 1 appl Donepezil HCl (Aricept) 10 mg PO HS [facility] Stop: 03/18/18 20:59 Last Admin: 01/23/18 20:53 Dose: 10 mg Epoetin Lee (Epogen) 5,000 units SUBQ MoWeFr [facility] Stop: 03/24/18 12:14 Last Admin: 01/23/18 13:19 Dose: 5,000 units Ferrous Sulfate (Iron) 325 mg PO BID [facility] Stop: 03/20/18 16:59 Last Admin: 01/24/18 10:12 Dose: 325 mg Fluoxetine HCl (Prozac) 20 mg PO DAILY [facility]; Protocol Stop: 03/19/18 16:59 Last Admin: 01/24/18 10:13 Dose: 20 mg Insulin Detemir (Levemir Insulin) 10 units SUBQ HS [facility]; Protocol Stop: 03/18/18 20:59 Last Admin: 01/23/18 21:14 Dose: 10 unit Lorazepam (Ativan) 0.5 mg PO Q6HR PRN; Protocol PRN Reason: Agitation Stop: 03/18/18 19:07 Last Admin: 01/19/18 01:52 Dose: 0.5 mg Magnesium Hydroxide (Milk Of Magnesia) 30 ml PO HS PRN PRN Reason: Constipation Metoprolol Tartrate (Lopressor) 25 mg PO BID [facility] Stop: 03/18/18 16:59 Last Admin: 01/24/18 10:12 Dose: 25 mg Multivitamins/Vitamin C (Theragran) 1 tab PO DAILY [facility] Stop: 03/19/18 08:59 Last Admin: 01/24/18 10:13 Dose: 1 tab Ropinirole HCl (Requip) 1 mg PO DAILY [facility] Stop: 03/19/18 08:59 Last Admin: 01/24/18 10:27 Dose: 1 mg Sitagliptin Phosphate (Januvia) 100 mg PO DAILY [facility] Stop: 03/19/18 08:59 Last Admin: 01/24/18 10:13 Dose: 100 mg Zolpidem Tartrate (Ambien) 5 mg PO HS PRN PRN Reason: Insomnia Stop: 03/18/18 15:35 Last Admin: 01/23/18 21:59 Dose: 5 mg General: Alert, Other (Confused) HEENT: Atraumatic Neck: Supple Cardiovascular: Regular rate Lungs: Clear to auscultation Abdomen: Bowel sounds, Soft Extremities: Other (No edema) Neurological: Other (Unstable gait) Skin: Other (Warm and dry) Psych/Mental Status: Other (Confused) Assessment/Plan - Assessment Assessment: Patient is awake, alert, confused. Creatinine continue high. Dx: Psychosis, Dementia, Legally blind, HTN, DM, CKD. - Plan Plan: Patient is under Psychiatric care, will continue with Home meds. Consult with Nephro is requested. Will continue to monitor. Nutritional Asmnt/Malnutr-PDOC - Dietary Evaluation Malnutrition Findings (Please click <Entered> for more info): Nutritional Asmnt/Malnutrition Start: 01/21/18 14: 27 Text: Status: Complete Freq: Protocol: Document 01/21/18 14:27 LCHENG (Rec: 01/21/18 14:35 [email or web address]) Nutritional Asmnt/Malnutrition Patient General Information Nutritional Screening Moderate Risk Diagnosis psychosis Pertinent Medical Hx/Surgical Hx CAD, HTN, psychosis, dementia, chronic renal insuff Subjective Information Pt seen lying in bed at time of visit, awake. Pt reported appetite good, food ok. Per EMR, PO intake 100% of meals. No wt record in EMR. Current Diet Order/ Nutrition Support low sodium 2gm Pertinent Medications lipitor, iron, levemir, theragran, januvia Pertinent Labs 01/19 BUN 28, Cr 2.3, glucose 89, A1c 6.7, POC 212 01/20 POC 151 Nutritional Hx/Data Height 1.68 m Height (Calculated Centimeters) 167.6 GI Symptoms Skin Integrity/Comment: intact Current %PO Good (75-100%) Estimated Nutritional Goals Calories/Kcals/Kg 25-30 based on IBW 59kg Kcals Calculated 3713-5091 Protein g/k.6-0.8 Protein Calculated 35-47 Fluid: ml 1475-1770ml (1ml/kcal) Nutritional Problem 1. Problem Problem altered nutrition related labs Etiology endocrine dysfunction, chronic renal insuff Signs/Symptoms: POC 151-212, A1c 6.7, BUN 28, Cr 2.3 Malnutrition Alert Is there a minimum of two criteria No selected? Query Text:Check all the applicable criteria. A minimum of two criteria are recommended for diagnosis of either severe or non-severe malnutrition. Malnutrition Related to Morbid Obesity Malnutrition related to morbid obesity No Intervention/Recommendation Comments 1. Consider renal diet d/t elevated BUN and Crea. If glucose continue high, will consider adding CCHO diet. 2. Monitor PO intake, wt, labs and skin integrity 3. F/U as low risk in 7 days, 01/28 Expected Outcomes/Goals Expected Outcomes/Goals 1. PO intake to meet at least 75% of nutritional needs. 2. Wt stability, skin to remain intact, labs to approach WNL.
--- NOTE | 2018-01-24 20:22 | Progress Notes ---
DATE: Case was discussed with staff of the patient, reviewed records. The patient continues to be confused, demented. Continues to be unable to make safe plan for self-care, unpredictable, impulsive, needing redirection, working on discharge plan. Sleeping better, eating better. No side effects with the medication, no sedation, no nausea, no extrapyramidal symptoms. We will continue the patient in group therapy and milieu therapy, adjust the medication as needed. JOB# [id number]
[2018-01-24] MEDS: Insulin Detemir 100 units/mL 10mL Vial SUBQ SCH (20:43)
[2018-01-25 06:43] LABS: % BASOPHILS 0.9 % (0.0-2.0); % EOSINOPHILS 3.2 % (0.0-5.0); % NEUTROPHILS 48.9 % (40.0-80.0); BASOPHILE ABSOLUTE 0.1 Th/cumm (0-0.2); EOSINOPHILE ABSOLUTE 0.2 Th/cmm (0.1-0.4); HEMATOCRIT 29.5 % (41.0-60); LYMPHOCYTE ABSOLUTE 2.3 Th/cmm (1.5-3.0); MEAN CORPUSCULAR HEMOGLOBIN 30.5 pg (27.0-31.0); MEAN CORPUSCULAR HGB CONC 33.9 pg (28.0-36.0); MEAN PLATELET VOLUME 7.4 fl; MONOCYTE ABSOLUTE 0.6 Th/cmm (0.3-1.0); NEUTROPHILE ABSOLUTE 3.1 Th/cmm (1.8-8.0); PLATELET COUNT 479 Th/cmm (150-400); RED BLOOD COUNT 3.27 Mil/cmm (3.80-5.20); RED CELL DISTRIBUTION WIDTH 12.5 % (11.5-20.0); WHITE BLOOD COUNT 6.3 Th/cmm (4.8-10.8)
[2018-01-25 07:01] LABS: ALB/GLOB RATIO 1.2 (1.0-1.8); ALBUMIN 3.7 gm/dL (3.7-5.3); ANION GAP 9.3 (7.0-16.0); BILIRUBIN,TOTAL 0.3 mg/dL (0.3-1.0); CALCIUM SERUM 9.2 mg/dL (8.6-10.3); CARBON DIOXIDE 26.3 mEq/L (21.0-31.0); CREATININE - SERUM 2.2 mg/dL (0.6-1.2); GFR AFRICAN-AMERICAN 28.8 ml/min (>90); GFR NON AFRICAN-AMERICAN 23.8 ml/min; POTASSIUM SERUM 4.6 mEq/L (3.5-5.1); TOTAL PROTEIN,SERUM 6.7 gm/dL (6.0-8.3)
[2018-01-25] MEDS: Ferrous Sulfate 325 MG TAB PO SCH ×2 (09:06→17:51)
[2018-01-25] MEDS: Atorvastatin Calcium 10 MG TAB PO SCH (09:06)
[2018-01-25] MEDS: Multivitamin Tab PO SCH (09:07)
--- NOTE | 2018-01-25 09:08 | General Progress Note ---
Subjective - Review of Systems Service Date: 01/25/18 Subjective: Patient confused Objective - Results Result Diagrams: 01/25/18 06:10 01/25/18 06:10 Recent Labs: Laboratory Last Values WBC 6.3 Th/cmm (4.8-10.8) 01/25/18 06:10 RBC 3.27 Mil/cmm (3.80-5.20) L 01/25/18 06:10 Hgb 10.0 gm/dL (12-16) L 01/25/18 06:10 Hct 29.5 % (41.0-60) L 01/25/18 06:10 MCV 90.0 fl (81-100) 01/25/18 06:10 MCH 30.5 pg (27.0-31.0) 01/25/18 06:10 MCHC Differential 33.9 pg (28.0-36.0) 01/25/18 06:10 RDW 12.5 % (11.5-20.0) 01/25/18 06:10 Plt Count 479 Th/cmm (150-400) H 01/25/18 06:10 MPV 7.4 fl 01/25/18 06:10 Neutrophils % 48.9 % (40.0-80.0) 01/25/18 06:10 Lymphocytes % 37.0 % (20.0-50.0) 01/25/18 06:10 Monocytes % 10.0 % (2.0-10.0) 01/25/18 06:10 Eosinophils % 3.2 % (0.0-5.0) 01/25/18 06:10 Basophils % 0.9 % (0.0-2.0) 01/25/18 06:10 Sodium 135 mEq/L (136-145) L 01/25/18 06:10 Potassium 4.6 mEq/L (3.5-5.1) 01/25/18 06:10 Chloride 104 mEq/L (98-107) 01/25/18 06:10 Carbon Dioxide 26.3 mEq/L (21.0-31.0) 01/25/18 06:10 Anion Gap 9.3 (7.0-16.0) 01/25/18 06:10 BUN 31 mg/dL (7-25) H 01/25/18 06:10 Creatinine 2.2 mg/dL (0.6-1.2) H 01/25/18 06:10 Est GFR ( Amer) 28.8 ml/min (>90) 01/25/18 06:10 Est GFR (Non-Af Amer) 23.8 ml/min 01/25/18 06:10 BUN/Creatinine Ratio 14.1 01/25/18 06:10 Glucose 101 mg/dL (70-105) 01/25/18 06:10 POC Glucose 128 MG/DL (70 - 105) H 01/23/18 21:01 Hemoglobin A1c % 6.7 % (4.0-6.0) H 01/19/18 06:48 Calcium 9.2 mg/dL (8.6-10.3) 01/25/18 06:10 Phosphorus 4.8 mg/dL (2.5-5.0) 01/23/18 07:15 Magnesium 2.4 mg/dL (1.9-2.7) 01/24/18 20:10 Total Bilirubin 0.3 mg/dL (0.3-1.0) 01/25/18 06:10 AST 15 U/L (13-39) 01/25/18 06:10 ALT 18 U/L (7-52) 01/25/18 06:10 Alkaline Phosphatase 83 U/L (34-104) 01/25/18 06:10 Total Protein 6.7 gm/dL (6.0-8.3) 01/25/18 06:10 Albumin 3.7 gm/dL (3.7-5.3) 01/25/18 06:10 Globulin 3.0 gm/dL 01/25/18 06:10 Albumin/Globulin Ratio 1.2 (1.0-1.8) 01/25/18 06:10 Triglycerides 153 mg/dL (<150) H 01/19/18 06:48 Cholesterol 121 mg/dL (<200) 01/19/18 06:48 LDL Cholesterol Direct 57 mg/dL (75-193) L 01/19/18 06:48 HDL Cholesterol 26 mg/dL (23-92) 01/19/18 06:48 TSH 1.55 uIU/ml (0.34-5.60) 01/23/18 07:15 - Physical Exam Vitals and I&O: Vital Signs Temp 97.9 F 01/25/18 04:40 Pulse 79 01/25/18 04:40 Resp 20 01/25/18 04:40 BP 115/70 01/25/18 04:40 Pulse Ox 89 01/25/18 04:40 Intake & Output 01/24/18 01/25/18 01/25/18 18:59 06:59 18:59 Intake Total 480 Balance 480 Intake: Oral 480 Other: # Voids 3 2 # Bowel Movements 0 Active Medications: Current Medications Acetaminophen (Tylenol) 650 mg PO Q4HR PRN PRN Reason: Mild Pain / Temp above 100 Stop: 03/18/18 15:35 Al Hydrox/Mg Hydrox/Simethicone (Maalox) 30 ml PO Q4HR PRN PRN Reason: GI DISTRESS Stop: 03/18/18 15:35 Amlodipine Besylate (Norvasc) 10 mg PO DAILY [facility] Stop: 03/19/18 08:59 Last Admin: 01/24/18 10:09 Dose: 10 mg Atorvastatin Calcium (Lipitor) 20 mg PO DAILY [facility]; Protocol Stop: 03/19/18 08:59 Last Admin: 01/24/18 10:11 Dose: 20 mg Betamethasone/Clotrimazole (Lotrisone Cream) 1 appl TP BID [facility] Stop: 03/20/18 09:59 Last Admin: 01/24/18 16:51 Dose: 1 appl Donepezil HCl (Aricept) 10 mg PO HS [facility] Stop: 03/18/18 20:59 Last Admin: 01/24/18 20:52 Dose: 10 mg Epoetin Lee (Epogen) 5,000 units SUBQ MoWeFr [facility] Stop: 03/24/18 12:14 Last Admin: 01/23/18 13:19 Dose: 5,000 units Ferrous Sulfate (Iron) 325 mg PO BID [facility] Stop: 03/20/18 16:59 Last Admin: 01/24/18 16:51 Dose: 325 mg Fluoxetine HCl (Prozac) 20 mg PO DAILY [facility]; Protocol Stop: 03/19/18 16:59 Last Admin: 01/24/18 10:13 Dose: 20 mg Insulin Detemir (Levemir Insulin) 10 units SUBQ HS [facility]; Protocol Stop: 03/18/18 20:59 Last Admin: 01/24/18 20:43 Dose: 10 unit Magnesium Hydroxide (Milk Of Magnesia) 30 ml PO HS PRN PRN Reason: Constipation Metoprolol Tartrate (Lopressor) 25 mg PO BID [facility] Stop: 03/18/18 16:59 Last Admin: 01/24/18 16:51 Dose: 25 mg Multivitamins/Vitamin C (Theragran) 1 tab PO DAILY [facility] Stop: 03/19/18 08:59 Last Admin: 01/24/18 10:13 Dose: 1 tab Ropinirole HCl (Requip) 1 mg PO DAILY [facility] Stop: 03/19/18 08:59 Last Admin: 01/24/18 10:27 Dose: 1 mg Sitagliptin Phosphate (Januvia) 100 mg PO DAILY [facility] Stop: 03/19/18 08:59 Last Admin: 01/24/18 10:13 Dose: 100 mg General: Alert, Other (Confused) HEENT: Atraumatic Neck: Supple Cardiovascular: Regular rate Lungs: Clear to auscultation Abdomen: Bowel sounds, Soft Extremities: Other (No edema) Neurological: Other (Unstable gait) Skin: Other (Warm and dry) Psych/Mental Status: Other (Confused) Assessment/Plan - Assessment Assessment: Patient is awake, alert, confused. Creatinine is improving. Dx: Psychosis, Dementia, Legally blind, HTN, DM, CKD. - Plan Plan: Patient is under Psychiatric care, will continue with Home meds. Patient follow by Nephro. Will continue to monitor. Nutritional Asmnt/Malnutr-PDOC - Dietary Evaluation Malnutrition Findings (Please click <Entered> for more info): Nutritional Asmnt/Malnutrition Start: 01/21/18 14: 27 Text: Status: Complete Freq: Protocol: Document 01/21/18 14:27 LCHENG (Rec: 01/21/18 14:35 LCHENG [email or web address]) Nutritional Asmnt/Malnutrition Patient General Information Nutritional Screening Moderate Risk Diagnosis psychosis Pertinent Medical Hx/Surgical Hx CAD, HTN, psychosis, dementia, chronic renal insuff Subjective Information Pt seen lying in bed at time of visit, awake. Pt reported appetite good, food ok. Per EMR, PO intake 100% of meals. No wt record in EMR. Current Diet Order/ Nutrition Support low sodium 2gm Pertinent Medications lipitor, iron, levemir, theragran, januvia Pertinent Labs 6/30 BUN 28, Cr 2.3, glucose 89, A1c 6.7, POC 212 7/1 POC 151 Nutritional Hx/Data Height 1.68 m Height (Calculated Centimeters) 167.6 GI Symptoms Skin Integrity/Comment: intact Current %PO Good (75-100%) Estimated Nutritional Goals Calories/Kcals/Kg 25-30 based on IBW 59kg Kcals Calculated 9613-4772 Protein g/k.6-0.8 Protein Calculated 35-47 Fluid: ml 1475-1770ml (1ml/kcal) Nutritional Problem 1. Problem Problem altered nutrition related labs Etiology endocrine dysfunction, chronic renal insuff Signs/Symptoms: POC 151-212, A1c 6.7, BUN 28, Cr 2.3 Malnutrition Alert Is there a minimum of two criteria No selected? Query Text:Check all the applicable criteria. A minimum of two criteria are recommended for diagnosis of either severe or non-severe malnutrition. Malnutrition Related to Morbid Obesity Malnutrition related to morbid obesity No Intervention/Recommendation Comments 1. Consider renal diet d/t elevated BUN and Crea. If glucose continue high, will consider adding CCHO diet. 2. Monitor PO intake, wt, labs and skin integrity 3. F/U as low risk in 7 days, 01/28 Expected Outcomes/Goals Expected Outcomes/Goals 1. PO intake to meet at least 75% of nutritional needs. 2. Wt stability, skin to remain intact, labs to approach WNL.
[2018-01-25] MEDS: Betamethasone/Clotrimazole Cream 15 gm Tube TP SCH ×2 (10:00→17:19)
[2018-01-25] MEDS: Epoetin Alfa 20000 Units/mL Vial SUBQ SCH (13:32)
[2018-01-25] MEDS: Insulin Detemir 100 units/mL 10mL Vial SUBQ SCH (21:38)
--- NOTE | 2018-01-26 02:52 | Progress Notes ---
DATE: 01/25/2018 SUMMARY: Case was discussed with staff of the patient and reviewed records. The patient continues to be confused. She continues to stay to herself, sleeps well, eats well. She is unable to make safe plan for her self-care and at times, easily agitated. She is sleeping better, eating better. No side effects to the medication, no sedation, no nausea, no extrapyramidal symptoms. She gets upset talking about her children. She currently believes that they will not come and see her. She feels abandoned by them; however, the staff is working with the family to get her placed in [place]. So far no side effects to the medication. We will continue the patient in group therapy, milieu therapy, and adjust medications as needed. JOB# [id number]
[2018-01-26] MEDS: Multivitamin Tab PO SCH (10:11)
[2018-01-26] MEDS: Atorvastatin Calcium 10 MG TAB PO SCH (10:14)
[2018-01-26] MEDS: Ferrous Sulfate 325 MG TAB PO SCH ×2 (10:14→16:45)
--- NOTE | 2018-01-26 15:35 | General Progress Note ---
Subjective - Review of Systems Service Date: 01/26/18 Subjective: Patient confused Objective - Results Result Diagrams: 01/25/18 06:10 01/25/18 06:10 Recent Labs: Laboratory Last Values WBC 6.3 Th/cmm (4.8-10.8) 01/25/18 06:10 RBC 3.27 Mil/cmm (3.80-5.20) L 01/25/18 06:10 Hgb 10.0 gm/dL (12-16) L 01/25/18 06:10 Hct 29.5 % (41.0-60) L 01/25/18 06:10 MCV 90.0 fl (81-100) 01/25/18 06:10 MCH 30.5 pg (27.0-31.0) 01/25/18 06:10 MCHC Differential 33.9 pg (28.0-36.0) 01/25/18 06:10 RDW 12.5 % (11.5-20.0) 01/25/18 06:10 Plt Count 479 Th/cmm (150-400) H 01/25/18 06:10 MPV 7.4 fl 01/25/18 06:10 Neutrophils % 48.9 % (40.0-80.0) 01/25/18 06:10 Lymphocytes % 37.0 % (20.0-50.0) 01/25/18 06:10 Monocytes % 10.0 % (2.0-10.0) 01/25/18 06:10 Eosinophils % 3.2 % (0.0-5.0) 01/25/18 06:10 Basophils % 0.9 % (0.0-2.0) 01/25/18 06:10 Sodium 135 mEq/L (136-145) L 01/25/18 06:10 Potassium 4.6 mEq/L (3.5-5.1) 01/25/18 06:10 Chloride 104 mEq/L (98-107) 01/25/18 06:10 Carbon Dioxide 26.3 mEq/L (21.0-31.0) 01/25/18 06:10 Anion Gap 9.3 (7.0-16.0) 01/25/18 06:10 BUN 31 mg/dL (7-25) H 01/25/18 06:10 Creatinine 2.2 mg/dL (0.6-1.2) H 01/25/18 06:10 Est GFR ( Amer) 28.8 ml/min (>90) 01/25/18 06:10 Est GFR (Non-Af Amer) 23.8 ml/min 01/25/18 06:10 BUN/Creatinine Ratio 14.1 01/25/18 06:10 Glucose 101 mg/dL (70-105) 01/25/18 06:10 POC Glucose 128 MG/DL (70 - 105) H 01/23/18 21:01 Hemoglobin A1c % 6.7 % (4.0-6.0) H 01/19/18 06:48 Calcium 9.2 mg/dL (8.6-10.3) 01/25/18 06:10 Phosphorus 4.8 mg/dL (2.5-5.0) 01/23/18 07:15 Magnesium 2.4 mg/dL (1.9-2.7) 01/24/18 20:10 Total Bilirubin 0.3 mg/dL (0.3-1.0) 01/25/18 06:10 AST 15 U/L (13-39) 01/25/18 06:10 ALT 18 U/L (7-52) 01/25/18 06:10 Alkaline Phosphatase 83 U/L (34-104) 01/25/18 06:10 Total Protein 6.7 gm/dL (6.0-8.3) 01/25/18 06:10 Albumin 3.7 gm/dL (3.7-5.3) 01/25/18 06:10 Globulin 3.0 gm/dL 01/25/18 06:10 Albumin/Globulin Ratio 1.2 (1.0-1.8) 01/25/18 06:10 Triglycerides 153 mg/dL (<150) H 01/19/18 06:48 Cholesterol 121 mg/dL (<200) 01/19/18 06:48 LDL Cholesterol Direct 57 mg/dL (75-193) L 01/19/18 06:48 HDL Cholesterol 26 mg/dL (23-92) 01/19/18 06:48 TSH 1.55 uIU/ml (0.34-5.60) 01/23/18 07:15 - Physical Exam Vitals and I&O: Vital Signs Temp 97.6 F 01/26/18 04:38 Pulse 69 01/26/18 10:13 Resp 19 01/26/18 04:38 BP 157/80 01/26/18 10:13 Pulse Ox 90 01/26/18 04:38 Intake & Output 01/25/18 01/26/18 01/26/18 18:59 06:59 18:59 Intake Total 480 Balance 480 Intake: Oral 480 Other: # Voids 2 Active Medications: Current Medications Acetaminophen (Tylenol) 650 mg PO Q4HR PRN PRN Reason: Mild Pain / Temp above 100 Stop: 03/18/18 15:35 Al Hydrox/Mg Hydrox/Simethicone (Maalox) 30 ml PO Q4HR PRN PRN Reason: GI DISTRESS Stop: 03/18/18 15:35 Amlodipine Besylate (Norvasc) 10 mg PO DAILY [facility] Stop: 03/19/18 08:59 Last Admin: 01/26/18 10:11 Dose: 10 mg Atorvastatin Calcium (Lipitor) 20 mg PO DAILY [facility]; Protocol Stop: 03/19/18 08:59 Last Admin: 01/26/18 10:14 Dose: 20 mg Betamethasone/Clotrimazole (Lotrisone Cream) 1 appl TP BID [facility] Stop: 03/20/18 09:59 Last Admin: 01/25/18 17:19 Dose: 1 appl Donepezil HCl (Aricept) 10 mg PO HS [facility] Stop: 03/18/18 20:59 Last Admin: 01/25/18 21:19 Dose: 10 mg Epoetin Lee (Epogen) 5,000 units SUBQ MoWeFr [facility] Stop: 03/24/18 12:14 Last Admin: 01/25/18 13:32 Dose: 5,000 units Ferrous Sulfate (Iron) 325 mg PO BID [facility] Stop: 03/20/18 16:59 Last Admin: 01/26/18 10:14 Dose: 325 mg Fluoxetine HCl (Prozac) 20 mg PO DAILY [facility]; Protocol Stop: 03/19/18 16:59 Last Admin: 01/26/18 10:16 Dose: 20 mg Insulin Detemir (Levemir Insulin) 10 units SUBQ HS [facility]; Protocol Stop: 03/18/18 20:59 Last Admin: 01/25/18 21:38 Dose: 10 unit Magnesium Hydroxide (Milk Of Magnesia) 30 ml PO HS PRN PRN Reason: Constipation Metoprolol Tartrate (Lopressor) 25 mg PO BID [facility] Stop: 03/18/18 16:59 Last Admin: 01/26/18 10:13 Dose: 25 mg Multivitamins/Vitamin C (Theragran) 1 tab PO DAILY [facility] Stop: 03/19/18 08:59 Last Admin: 01/26/18 10:11 Dose: 1 tab Ropinirole HCl (Requip) 1 mg PO DAILY [facility] Stop: 03/19/18 08:59 Last Admin: 01/26/18 10:12 Dose: 1 mg Sitagliptin Phosphate (Januvia) 100 mg PO DAILY [facility] Stop: 03/19/18 08:59 Last Admin: 01/26/18 10:16 Dose: 100 mg General: Alert, Other (Confused) HEENT: Atraumatic Neck: Supple Cardiovascular: Regular rate Lungs: Clear to auscultation Abdomen: Bowel sounds, Soft Extremities: Other (No edema) Neurological: Other (Unstable gait) Skin: Other (Warm and dry) Psych/Mental Status: Other (Confused) Assessment/Plan - Assessment Assessment: Patient is awake, alert, confused. Creatinine is improving. Dx: Psychosis, Dementia, Legally blind, HTN, DM, CKD. - Plan Plan: Patient is under Psychiatric care, will continue with Home meds. Patient follow by Nephro. Will continue to monitor. Nutritional Asmnt/Malnutr-PDOC - Dietary Evaluation Malnutrition Findings (Please click <Entered> for more info): Nutritional Asmnt/Malnutrition Start: 01/21/18 14: 27 Text: Status: Complete Freq: Protocol: Document 01/21/18 14:27 LCHENG (Rec: 01/21/18 14:35 LCHENG [email or web address]) Nutritional Asmnt/Malnutrition Patient General Information Nutritional Screening Moderate Risk Diagnosis psychosis Pertinent Medical Hx/Surgical Hx CAD, HTN, psychosis, dementia, chronic renal insuff Subjective Information Pt seen lying in bed at time of visit, awake. Pt reported appetite good, food ok. Per EMR, PO intake 100% of meals. No wt record in EMR. Current Diet Order/ Nutrition Support low sodium 2gm Pertinent Medications lipitor, iron, levemir, theragran, januvia Pertinent Labs 01/19 BUN 28, Cr 2.3, glucose 89, A1c 6.7, POC 212 7/ POC 151 Nutritional Hx/Data Height 1.68 m Height (Calculated Centimeters) 167.6 GI Symptoms Skin Integrity/Comment: intact Current %PO Good (75-100%) Estimated Nutritional Goals Calories/Kcals/Kg 25-30 based on IBW 59kg Kcals Calculated 6398-1047 Protein g/k.6-0.8 Protein Calculated 35-47 Fluid: ml 1475-1770ml (1ml/kcal) Nutritional Problem 1. Problem Problem altered nutrition related labs Etiology endocrine dysfunction, chronic renal insuff Signs/Symptoms: POC 151-212, A1c 6.7, BUN 28, Cr 2.3 Malnutrition Alert Is there a minimum of two criteria No selected? Query Text:Check all the applicable criteria. A minimum of two criteria are recommended for diagnosis of either severe or non-severe malnutrition. Malnutrition Related to Morbid Obesity Malnutrition related to morbid obesity No Intervention/Recommendation Comments 1. Consider renal diet d/t elevated BUN and Crea. If glucose continue high, will consider adding CCHO diet. 2. Monitor PO intake, wt, labs and skin integrity 3. F/U as low risk in 7 days, 01/28 Expected Outcomes/Goals Expected Outcomes/Goals 1. PO intake to meet at least 75% of nutritional needs. 2. Wt stability, skin to remain intact, labs to approach WNL.
[2018-01-26] MEDS: Betamethasone/Clotrimazole Cream 15 gm Tube TP SCH ×2 (15:52→16:57)
[2018-01-26] MEDS: Insulin Detemir 100 units/mL 10mL Vial SUBQ SCH (21:05)
--- NOTE | 2018-01-27 01:47 | Progress Notes ---
DATE: 01/26/2018 SUBJECTIVE: The patient brought in on a hold for grave disability. States he is ready to go home, feels "fine." Originally brought in for poor self-care, unable to clean self, not been eating. Medications were noted including dosages and frequencies. Dr. Durham noting, the patient is confused, continues to stay to herself. Sleeping well, eating well. Ongoing concerns for ability to care for herself, feeling abandoned by children. Medications were noted. Staff noting some confusion, poor orientation. ASSESSMENT: The patient seems to be calmer, more cooperative, confusion noted. Concerns for ability to care for herself. PLAN: We will continue to monitor. Given ongoing symptoms, there are ongoing safety concerns, but the patient does seem to be calmer and improving. JOB# [id number]
[2018-01-27] MEDS: Atorvastatin Calcium 10 MG TAB PO SCH (09:26)
[2018-01-27] MEDS: Ferrous Sulfate 325 MG TAB PO SCH ×2 (09:27→16:34)
[2018-01-27] MEDS: Multivitamin Tab PO SCH (09:27)
--- NOTE | 2018-01-27 17:26 | Progress Notes ---
DATE: 01/27/2018 SUBJECTIVE: The patient in the hospital on a hold for grave disability. States she feels "okay." States she wants to go home. States she can care for herself. States she can walk, but it seems she has a wheelchair at bedside. Concerns that she may not in fact be able to care for basic needs. Also with intermittent confusion, poor orientation, legally blind. Overt concerns about her ability to live alone and care for basic food, clothing, and fdc. She is pleasant on exam, at times becomes focused on smoking. Denying any pain or discomfort. Medications were noted. She slept fairly well last night, eating with some prompting. ASSESSMENT: The patient remains symptomatic, still with some confusion and disorientation. Concerns for ability to care for herself, although she states she can live on her own. PLAN: We will continue to monitor. We will titrate and adjust medications. Given her ongoing symptoms, she is not currently safe for discharge. ROBERTS [place]# [id number]
[2018-01-27] MEDS: Insulin Detemir 100 units/mL 10mL Vial SUBQ SCH (21:10)
--- NOTE | 2018-01-28 08:36 | General Progress Note ---
Subjective - Review of Systems Service Date: 01/28/18 Subjective: Patient confused Objective - Results Result Diagrams: 01/25/18 06:10 01/25/18 06:10 Recent Labs: Laboratory Last Values WBC 6.3 Th/cmm (4.8-10.8) 01/25/18 06:10 RBC 3.27 Mil/cmm (3.80-5.20) L 01/25/18 06:10 Hgb 10.0 gm/dL (12-16) L 01/25/18 06:10 Hct 29.5 % (41.0-60) L 01/25/18 06:10 MCV 90.0 fl (81-100) 01/25/18 06:10 MCH 30.5 pg (27.0-31.0) 01/25/18 06:10 MCHC Differential 33.9 pg (28.0-36.0) 01/25/18 06:10 RDW 12.5 % (11.5-20.0) 01/25/18 06:10 Plt Count 479 Th/cmm (150-400) H 01/25/18 06:10 MPV 7.4 fl 01/25/18 06:10 Neutrophils % 48.9 % (40.0-80.0) 01/25/18 06:10 Lymphocytes % 37.0 % (20.0-50.0) 01/25/18 06:10 Monocytes % 10.0 % (2.0-10.0) 01/25/18 06:10 Eosinophils % 3.2 % (0.0-5.0) 01/25/18 06:10 Basophils % 0.9 % (0.0-2.0) 01/25/18 06:10 Sodium 135 mEq/L (136-145) L 01/25/18 06:10 Potassium 4.6 mEq/L (3.5-5.1) 01/25/18 06:10 Chloride 104 mEq/L (98-107) 01/25/18 06:10 Carbon Dioxide 26.3 mEq/L (21.0-31.0) 01/25/18 06:10 Anion Gap 9.3 (7.0-16.0) 01/25/18 06:10 BUN 31 mg/dL (7-25) H 01/25/18 06:10 Creatinine 2.2 mg/dL (0.6-1.2) H 01/25/18 06:10 Est GFR ( Amer) 28.8 ml/min (>90) 01/25/18 06:10 Est GFR (Non-Af Amer) 23.8 ml/min 01/25/18 06:10 BUN/Creatinine Ratio 14.1 01/25/18 06:10 Glucose 101 mg/dL (70-105) 01/25/18 06:10 POC Glucose 128 MG/DL (70 - 105) H 01/23/18 21:01 Hemoglobin A1c % 6.7 % (4.0-6.0) H 01/19/18 06:48 Calcium 9.2 mg/dL (8.6-10.3) 01/25/18 06:10 Phosphorus 4.8 mg/dL (2.5-5.0) 01/23/18 07:15 Magnesium 2.4 mg/dL (1.9-2.7) 01/24/18 20:10 Total Bilirubin 0.3 mg/dL (0.3-1.0) 01/25/18 06:10 AST 15 U/L (13-39) 01/25/18 06:10 ALT 18 U/L (7-52) 01/25/18 06:10 Alkaline Phosphatase 83 U/L (34-104) 01/25/18 06:10 Total Protein 6.7 gm/dL (6.0-8.3) 01/25/18 06:10 Albumin 3.7 gm/dL (3.7-5.3) 01/25/18 06:10 Globulin 3.0 gm/dL 01/25/18 06:10 Albumin/Globulin Ratio 1.2 (1.0-1.8) 01/25/18 06:10 Triglycerides 153 mg/dL (<150) H 01/19/18 06:48 Cholesterol 121 mg/dL (<200) 01/19/18 06:48 LDL Cholesterol Direct 57 mg/dL (75-193) L 01/19/18 06:48 HDL Cholesterol 26 mg/dL (23-92) 01/19/18 06:48 TSH 1.55 uIU/ml (0.34-5.60) 01/23/18 07:15 - Physical Exam Vitals and I&O: Vital Signs Temp 97.6 F 01/28/18 06:24 Pulse 66 01/28/18 06:24 Resp 18 01/28/18 06:24 BP 153/67 01/28/18 06:24 Pulse Ox 97 01/28/18 06:24 Intake & Output 01/27/18 01/28/18 01/28/18 18:59 06:59 18:59 Intake Total 240 Balance 240 Intake: Oral 240 Other: # Voids 2 Active Medications: Current Medications Acetaminophen (Tylenol) 650 mg PO Q4HR PRN PRN Reason: Mild Pain / Temp above 100 Stop: 03/18/18 15:35 Al Hydrox/Mg Hydrox/Simethicone (Maalox) 30 ml PO Q4HR PRN PRN Reason: GI DISTRESS Stop: 03/18/18 15:35 Amlodipine Besylate (Norvasc) 10 mg PO DAILY [facility] Stop: 03/19/18 08:59 Last Admin: 01/27/18 09:27 Dose: Not Given Atorvastatin Calcium (Lipitor) 20 mg PO DAILY [facility]; Protocol Stop: 03/19/18 08:59 Last Admin: 01/27/18 09:26 Dose: 20 mg Donepezil HCl (Aricept) 10 mg PO HS [facility] Stop: 03/18/18 20:59 Last Admin: 01/27/18 21:10 Dose: 10 mg Epoetin Lee (Epogen) 5,000 units SUBQ MoWeFr [facility] Stop: 03/24/18 12:14 Last Admin: 01/25/18 13:32 Dose: 5,000 units Ferrous Sulfate (Iron) 325 mg PO BID [facility] Stop: 03/20/18 16:59 Last Admin: 01/27/18 16:34 Dose: 325 mg Fluoxetine HCl (Prozac) 20 mg PO DAILY [facility]; Protocol Stop: 03/19/18 16:59 Last Admin: 01/27/18 09:27 Dose: 20 mg Insulin Detemir (Levemir Insulin) 10 units SUBQ HS [facility]; Protocol Stop: 03/18/18 20:59 Last Admin: 01/27/18 21:10 Dose: 10 unit Magnesium Hydroxide (Milk Of Magnesia) 30 ml PO HS PRN PRN Reason: Constipation Metoprolol Tartrate (Lopressor) 25 mg PO BID [facility] Stop: 03/18/18 16:59 Last Admin: 01/27/18 16:34 Dose: Not Given Multivitamins/Vitamin C (Theragran) 1 tab PO DAILY [facility] Stop: 03/19/18 08:59 Last Admin: 01/27/18 09:27 Dose: 1 tab Ropinirole HCl (Requip) 1 mg PO DAILY [facility] Stop: 03/19/18 08:59 Last Admin: 01/27/18 09:26 Dose: 1 mg Sitagliptin Phosphate (Januvia) 100 mg PO DAILY [facility] Stop: 03/19/18 08:59 Last Admin: 01/27/18 09:27 Dose: 100 mg General: Alert, Other (Confused) HEENT: Atraumatic Neck: Supple Cardiovascular: Regular rate Lungs: Clear to auscultation Abdomen: Bowel sounds, Soft Extremities: Other (No edema) Neurological: Other (Unstable gait) Skin: Other (Warm and dry) Psych/Mental Status: Other (Confused) Assessment/Plan - Assessment Assessment: Patient is awake, alert, confused. Creatinine is improving. Dx: Psychosis, Dementia, Legally blind, HTN, DM, CKD. - Plan Plan: Patient is under Psychiatric care, will continue with Home meds. Patient follow by Nephro. Will continue to monitor. Nutritional Asmnt/Malnutr-PDOC - Dietary Evaluation Malnutrition Findings (Please click <Entered> for more info): Nutritional Asmnt/Malnutrition Start: 01/21/18 14: 27 Text: Status: Complete Freq: Protocol: Document 01/21/18 14:27 LCHENG (Rec: 01/21/18 14:35 [email or web address]) Nutritional Asmnt/Malnutrition Patient General Information Nutritional Screening Moderate Risk Diagnosis psychosis Pertinent Medical Hx/Surgical Hx CAD, HTN, psychosis, dementia, chronic renal insuff Subjective Information Pt seen lying in bed at time of visit, awake. Pt reported appetite good, food ok. Per EMR, PO intake 100% of meals. No wt record in EMR. Current Diet Order/ Nutrition Support low sodium 2gm Pertinent Medications lipitor, iron, levemir, theragran, januvia Pertinent Labs 01/19 BUN 28, Cr 2.3, glucose 89, A1c 6.7, POC 212 7/1 POC 151 Nutritional Hx/Data Height 1.68 m Height (Calculated Centimeters) 167.6 GI Symptoms Skin Integrity/Comment: intact Current %PO Good (75-100%) Estimated Nutritional Goals Calories/Kcals/Kg 25-30 based on IBW 59kg Kcals Calculated 1945-8312 Protein g/k.6-0.8 Protein Calculated 35-47 Fluid: ml 1475-1770ml (1ml/kcal) Nutritional Problem 1. Problem Problem altered nutrition related labs Etiology endocrine dysfunction, chronic renal insuff Signs/Symptoms: POC 151-212, A1c 6.7, BUN 28, Cr 2.3 Malnutrition Alert Is there a minimum of two criteria No selected? Query Text:Check all the applicable criteria. A minimum of two criteria are recommended for diagnosis of either severe or non-severe malnutrition. Malnutrition Related to Morbid Obesity Malnutrition related to morbid obesity No Intervention/Recommendation Comments 1. Consider renal diet d/t elevated BUN and Crea. If glucose continue high, will consider adding CCHO diet. 2. Monitor PO intake, wt, labs and skin integrity 3. F/U as low risk in 7 days, 01/28 Expected Outcomes/Goals Expected Outcomes/Goals 1. PO intake to meet at least 75% of nutritional needs. 2. Wt stability, skin to remain intact, labs to approach WNL.
[2018-01-28] MEDS: Multivitamin Tab PO SCH (10:34)
[2018-01-28] MEDS: Atorvastatin Calcium 10 MG TAB PO SCH (10:34)
[2018-01-28] MEDS: Ferrous Sulfate 325 MG TAB PO SCH ×2 (10:34→16:41)
[2018-01-28] MEDS: Epoetin Alfa 20000 Units/mL Vial SUBQ SCH ×2 (16:41→17:24)
[2018-01-28] MEDS: Insulin Detemir 100 units/mL 10mL Vial SUBQ SCH (21:00)
--- NOTE | 2018-01-28 21:31 | Progress Notes ---
DATE: 01/29/20 MTDD
--- NOTE | 2018-01-28 21:36 | Progress Notes ---
DATE: 01/28/2018 Case was discussed with staff of the patient, reviewed records. Continues to be demented, confused, continues to be unable to take care of her ADLs. Continues to have episodes of irritability. She is legally blind. She is a high fall risk. Unable to live alone. The staff is working on placement and they would send her to [place]; however, she is still unpredictable, impulsive, needing redirection. No side effects of the medications, no sedation, no nausea and will continue outpatient group therapy, milieu therapy, adjust the medication as needed. JOB# [id number]
[2018-01-29 06:35] LABS: ALB/GLOB RATIO 1.3 (1.0-1.8); ALBUMIN 3.8 gm/dL (3.7-5.3); ANION GAP 10.4 (7.0-16.0); BILIRUBIN,TOTAL 0.3 mg/dL (0.3-1.0); CALCIUM SERUM 9.4 mg/dL (8.6-10.3); CARBON DIOXIDE 26.4 mEq/L (21.0-31.0); GFR AFRICAN-AMERICAN 32.2 ml/min (>90); GFR NON AFRICAN-AMERICAN 26.6 ml/min; POTASSIUM SERUM 4.8 mEq/L (3.5-5.1); TOTAL PROTEIN,SERUM 6.7 gm/dL (6.0-8.3)
[2018-01-29 06:55] LABS: % BASOPHILS 0.9 % (0.0-2.0); % EOSINOPHILS 4.6 % (0.0-5.0); % LYMPHOCYTES 40.6 % (20.0-50.0); % MONOCYTES 10.1 % (2.0-10.0); % NEUTROPHILS 43.8 % (40.0-80.0); BASOPHILE ABSOLUTE 0.1 Th/cumm (0-0.2); EOSINOPHILE ABSOLUTE 0.3 Th/cmm (0.1-0.4); HEMATOCRIT 30.9 % (41.0-60); HEMOGLOBIN 10.5 gm/dL (12-16); MEAN CELL VOLUME 91.7 fl (81-100); MEAN CORPUSCULAR HEMOGLOBIN 31.1 pg (27.0-31.0); MEAN CORPUSCULAR HGB CONC 33.9 pg (28.0-36.0); MEAN PLATELET VOLUME 7.4 fl; MONOCYTE ABSOLUTE 0.8 Th/cmm (0.3-1.0); NEUTROPHILE ABSOLUTE 3.3 Th/cmm (1.8-8.0); PLATELET COUNT 427 Th/cmm (150-400); RED BLOOD COUNT 3.37 Mil/cmm (3.80-5.20); WHITE BLOOD COUNT 7.5 Th/cmm (4.8-10.8)
--- NOTE | 2018-01-29 08:42 | General Progress Note ---
Subjective - Review of Systems Service Date: 01/29/18 Subjective: Patient confused Objective - Results Result Diagrams: 01/29/18 05:50 01/29/18 05:50 Recent Labs: Laboratory Last Values WBC 7.5 Th/cmm (4.8-10.8) 01/29/18 05:50 RBC 3.37 Mil/cmm (3.80-5.20) L 01/29/18 05:50 Hgb 10.5 gm/dL (12-16) L 01/29/18 05:50 Hct 30.9 % (41.0-60) L 01/29/18 05:50 MCV 91.7 fl (81-100) 01/29/18 05:50 MCH 31.1 pg (27.0-31.0) H 01/29/18 05:50 MCHC Differential 33.9 pg (28.0-36.0) 01/29/18 05:50 RDW 13.0 % (11.5-20.0) 01/29/18 05:50 Plt Count 427 Th/cmm (150-400) H 01/29/18 05:50 MPV 7.4 fl 01/29/18 05:50 Neutrophils % 43.8 % (40.0-80.0) 01/29/18 05:50 Lymphocytes % 40.6 % (20.0-50.0) 01/29/18 05:50 Monocytes % 10.1 % (2.0-10.0) H 01/29/18 05:50 Eosinophils % 4.6 % (0.0-5.0) 01/29/18 05:50 Basophils % 0.9 % (0.0-2.0) 01/29/18 05:50 Sodium 138 mEq/L (136-145) 01/29/18 05:50 Potassium 4.8 mEq/L (3.5-5.1) 01/29/18 05:50 Chloride 106 mEq/L (98-107) 01/29/18 05:50 Carbon Dioxide 26.4 mEq/L (21.0-31.0) 01/29/18 05:50 Anion Gap 10.4 (7.0-16.0) 01/29/18 05:50 BUN 29 mg/dL (7-25) H 01/29/18 05:50 Creatinine 2.0 mg/dL (0.6-1.2) H 01/29/18 05:50 Est GFR ( Amer) 32.2 ml/min (>90) 01/29/18 05:50 Est GFR (Non-Af Amer) 26.6 ml/min 01/29/18 05:50 BUN/Creatinine Ratio 14.5 01/29/18 05:50 Glucose 83 mg/dL (70-105) 01/29/18 05:50 POC Glucose 128 MG/DL (70 - 105) H 01/23/18 21:01 Hemoglobin A1c % 6.7 % (4.0-6.0) H 01/19/18 06:48 Calcium 9.4 mg/dL (8.6-10.3) 01/29/18 05:50 Phosphorus 4.8 mg/dL (2.5-5.0) 01/23/18 07:15 Magnesium 2.4 mg/dL (1.9-2.7) 01/24/18 20:10 Total Bilirubin 0.3 mg/dL (0.3-1.0) 01/29/18 05:50 AST 14 U/L (13-39) 01/29/18 05:50 ALT 23 U/L (7-52) 01/29/18 05:50 Alkaline Phosphatase 103 U/L (34-104) 01/29/18 05:50 Total Protein 6.7 gm/dL (6.0-8.3) 01/29/18 05:50 Albumin 3.8 gm/dL (3.7-5.3) 01/29/18 05:50 Globulin 2.9 gm/dL 01/29/18 05:50 Albumin/Globulin Ratio 1.3 (1.0-1.8) 01/29/18 05:50 Triglycerides 153 mg/dL (<150) H 01/19/18 06:48 Cholesterol 121 mg/dL (<200) 01/19/18 06:48 LDL Cholesterol Direct 57 mg/dL (75-193) L 01/19/18 06:48 HDL Cholesterol 26 mg/dL (23-92) 01/19/18 06:48 TSH 1.55 uIU/ml (0.34-5.60) 01/23/18 07:15 - Physical Exam Vitals and I&O: Vital Signs Temp 97.0 F 01/29/18 06:09 Pulse 60 01/29/18 06:09 Resp 18 01/29/18 06:09 BP 129/62 01/29/18 06:09 Pulse Ox 99 01/29/18 06:09 Intake & Output 01/28/18 01/29/18 01/29/18 18:59 06:59 18:59 Intake Total 120 Output Total 0 Balance 120 Intake: Oral 120 Output: Stool 0 Other: # Voids 2 Active Medications: Current Medications Acetaminophen (Tylenol) 650 mg PO Q4HR PRN PRN Reason: Mild Pain / Temp above 100 Stop: 03/18/18 15:35 Al Hydrox/Mg Hydrox/Simethicone (Maalox) 30 ml PO Q4HR PRN PRN Reason: GI DISTRESS Stop: 03/18/18 15:35 Amlodipine Besylate (Norvasc) 10 mg PO DAILY [facility] Stop: 03/19/18 08:59 Last Admin: 01/28/18 10:35 Dose: 10 mg Atorvastatin Calcium (Lipitor) 20 mg PO DAILY [facility]; Protocol Stop: 03/19/18 08:59 Last Admin: 01/28/18 10:34 Dose: 20 mg Donepezil HCl (Aricept) 10 mg PO HS [facility] Stop: 03/18/18 20:59 Last Admin: 01/28/18 20:57 Dose: 10 mg Epoetin Lee (Epogen) 5,000 units SUBQ MoWeFr [facility] Stop: 03/24/18 12:14 Last Admin: 01/28/18 16:41 Dose: Not Given Ferrous Sulfate (Iron) 325 mg PO BID [facility] Stop: 03/20/18 16:59 Last Admin: 01/28/18 16:41 Dose: 325 mg Fluoxetine HCl (Prozac) 20 mg PO DAILY [facility]; Protocol Stop: 03/19/18 16:59 Last Admin: 01/28/18 10:38 Dose: 20 mg Insulin Detemir (Levemir Insulin) 10 units SUBQ HS [facility]; Protocol Stop: 03/18/18 20:59 Last Admin: 01/28/18 21:00 Dose: 10 unit Magnesium Hydroxide (Milk Of Magnesia) 30 ml PO HS PRN PRN Reason: Constipation Metoprolol Tartrate (Lopressor) 25 mg PO BID [facility] Stop: 03/18/18 16:59 Last Admin: 01/28/18 16:41 Dose: 25 mg Multivitamins/Vitamin C (Theragran) 1 tab PO DAILY [facility] Stop: 03/19/18 08:59 Last Admin: 01/28/18 10:34 Dose: 1 tab Ropinirole HCl (Requip) 1 mg PO DAILY [facility] Stop: 03/19/18 08:59 Last Admin: 01/28/18 10:34 Dose: 1 mg Sitagliptin Phosphate (Januvia) 100 mg PO DAILY [facility] Stop: 03/19/18 08:59 Last Admin: 01/28/18 10:35 Dose: 100 mg General: Alert, Other (Confused) HEENT: Atraumatic Neck: Supple Cardiovascular: Regular rate Lungs: Clear to auscultation Abdomen: Bowel sounds, Soft Extremities: Other (No edema) Neurological: Other (Unstable gait) Skin: Other (Warm and dry) Psych/Mental Status: Other (Confused) Assessment/Plan - Assessment Assessment: Patient is awake, alert, confused. Creatinine continuing improving. Dx: Psychosis, Dementia, Legally blind, HTN, DM, CKD. - Plan Plan: Patient is under Psychiatric care, will continue with Home meds. Patient follow by Nephro. Will continue to monitor. Nutritional Asmnt/Malnutr-PDOC - Dietary Evaluation Malnutrition Findings (Please click <Entered> for more info): Nutritional Asmnt/Malnutrition Start: 01/21/18 14: 27 Text: Status: Complete Freq: Protocol: Document 01/21/18 14:27 LCHENG (Rec: 01/21/18 14:35 [email or web address]) Nutritional Asmnt/Malnutrition Patient General Information Nutritional Screening Moderate Risk Diagnosis psychosis Pertinent Medical Hx/Surgical Hx CAD, HTN, psychosis, dementia, chronic renal insuff Subjective Information Pt seen lying in bed at time of visit, awake. Pt reported appetite good, food ok. Per EMR, PO intake 100% of meals. No wt record in EMR. Current Diet Order/ Nutrition Support low sodium 2gm Pertinent Medications lipitor, iron, levemir, theragran, januvia Pertinent Labs 01/19 BUN 28, Cr 2.3, glucose 89, A1c 6.7, POC 212 7/1 POC 151 Nutritional Hx/Data Height 1.68 m Height (Calculated Centimeters) 167.6 GI Symptoms Skin Integrity/Comment: intact Current %PO Good (75-100%) Estimated Nutritional Goals Calories/Kcals/Kg 25-30 based on IBW 59kg Kcals Calculated 2088-4326 Protein g/k.6-0.8 Protein Calculated 35-47 Fluid: ml 1475-1770ml (1ml/kcal) Nutritional Problem 1. Problem Problem altered nutrition related labs Etiology endocrine dysfunction, chronic renal insuff Signs/Symptoms: POC 151-212, A1c 6.7, BUN 28, Cr 2.3 Malnutrition Alert Is there a minimum of two criteria No selected? Query Text:Check all the applicable criteria. A minimum of two criteria are recommended for diagnosis of either severe or non-severe malnutrition. Malnutrition Related to Morbid Obesity Malnutrition related to morbid obesity No Intervention/Recommendation Comments 1. Consider renal diet d/t elevated BUN and Crea. If glucose continue high, will consider adding CCHO diet. 2. Monitor PO intake, wt, labs and skin integrity 3. F/U as low risk in 7 days, 01/28 Expected Outcomes/Goals Expected Outcomes/Goals 1. PO intake to meet at least 75% of nutritional needs. 2. Wt stability, skin to remain intact, labs to approach WNL.
[2018-01-29] MEDS: Atorvastatin Calcium 10 MG TAB PO SCH (09:21)
[2018-01-29] MEDS: Ferrous Sulfate 325 MG TAB PO SCH ×2 (09:21→17:22)
[2018-01-29] MEDS: Multivitamin Tab PO SCH (09:22)
[2018-01-29] MEDS: Insulin Detemir 100 units/mL 10mL Vial SUBQ SCH (20:50)
--- NOTE | 2018-01-29 22:12 | Progress Notes ---
DATE: 01/29/2018 SUBJECTIVE: Case was discussed with staff of the patient, reviewed records. The patient seems to be showing progress. She is sleeping better, eating better. She is compliant with the medication with no side effects, no sedation or nausea, no extrapyramidal symptoms. She has been easier to redirect. Working on placement and we are trying to work on discharging the patient to a rehab facility SNF and so far no side effects with the medication. We will continue to work with the patient in group therapy, milieu therapy, and adjust the medications as needed. JOB# [id number]
--- NOTE | 2018-01-30 09:07 | General Progress Note ---
Subjective - Review of Systems Service Date: 01/30/18 Subjective: Patient confused Objective - Results Result Diagrams: 01/29/18 05:50 01/29/18 05:50 Recent Labs: Laboratory Last Values WBC 7.5 Th/cmm (4.8-10.8) 01/29/18 05:50 RBC 3.37 Mil/cmm (3.80-5.20) L 01/29/18 05:50 Hgb 10.5 gm/dL (12-16) L 01/29/18 05:50 Hct 30.9 % (41.0-60) L 01/29/18 05:50 MCV 91.7 fl (81-100) 01/29/18 05:50 MCH 31.1 pg (27.0-31.0) H 01/29/18 05:50 MCHC Differential 33.9 pg (28.0-36.0) 01/29/18 05:50 RDW 13.0 % (11.5-20.0) 01/29/18 05:50 Plt Count 427 Th/cmm (150-400) H 01/29/18 05:50 MPV 7.4 fl 01/29/18 05:50 Neutrophils % 43.8 % (40.0-80.0) 01/29/18 05:50 Lymphocytes % 40.6 % (20.0-50.0) 01/29/18 05:50 Monocytes % 10.1 % (2.0-10.0) H 01/29/18 05:50 Eosinophils % 4.6 % (0.0-5.0) 01/29/18 05:50 Basophils % 0.9 % (0.0-2.0) 01/29/18 05:50 Sodium 138 mEq/L (136-145) 01/29/18 05:50 Potassium 4.8 mEq/L (3.5-5.1) 01/29/18 05:50 Chloride 106 mEq/L (98-107) 01/29/18 05:50 Carbon Dioxide 26.4 mEq/L (21.0-31.0) 01/29/18 05:50 Anion Gap 10.4 (7.0-16.0) 01/29/18 05:50 BUN 29 mg/dL (7-25) H 01/29/18 05:50 Creatinine 2.0 mg/dL (0.6-1.2) H 01/29/18 05:50 Est GFR ( Amer) 32.2 ml/min (>90) 01/29/18 05:50 Est GFR (Non-Af Amer) 26.6 ml/min 01/29/18 05:50 BUN/Creatinine Ratio 14.5 01/29/18 05:50 Glucose 83 mg/dL (70-105) 01/29/18 05:50 POC Glucose 145 MG/DL (70 - 105) H 01/29/18 20:58 Hemoglobin A1c % 6.7 % (4.0-6.0) H 01/19/18 06:48 Calcium 9.4 mg/dL (8.6-10.3) 01/29/18 05:50 Phosphorus 4.8 mg/dL (2.5-5.0) 01/23/18 07:15 Magnesium 2.4 mg/dL (1.9-2.7) 01/24/18 20:10 Total Bilirubin 0.3 mg/dL (0.3-1.0) 01/29/18 05:50 AST 14 U/L (13-39) 01/29/18 05:50 ALT 23 U/L (7-52) 01/29/18 05:50 Alkaline Phosphatase 103 U/L (34-104) 01/29/18 05:50 Total Protein 6.7 gm/dL (6.0-8.3) 01/29/18 05:50 Albumin 3.8 gm/dL (3.7-5.3) 01/29/18 05:50 Globulin 2.9 gm/dL 01/29/18 05:50 Albumin/Globulin Ratio 1.3 (1.0-1.8) 01/29/18 05:50 Triglycerides 153 mg/dL (<150) H 01/19/18 06:48 Cholesterol 121 mg/dL (<200) 01/19/18 06:48 LDL Cholesterol Direct 57 mg/dL (75-193) L 01/19/18 06:48 HDL Cholesterol 26 mg/dL (23-92) 01/19/18 06:48 TSH 1.55 uIU/ml (0.34-5.60) 01/23/18 07:15 - Physical Exam Vitals and I&O: Vital Signs Temp 97.6 F 01/30/18 06:42 Pulse 68 01/30/18 06:42 Resp 18 01/30/18 06:42 BP 141/76 01/30/18 06:42 Pulse Ox 98 01/30/18 06:42 Intake & Output 01/29/18 01/30/18 01/30/18 18:59 06:59 18:59 Intake Total 120 Balance 120 Intake: Oral 120 Other: # Voids 3 # Bowel Movements 0 Active Medications: Current Medications Acetaminophen (Tylenol) 650 mg PO Q4HR PRN PRN Reason: Mild Pain / Temp above 100 Stop: 03/18/18 15:35 Al Hydrox/Mg Hydrox/Simethicone (Maalox) 30 ml PO Q4HR PRN PRN Reason: GI DISTRESS Stop: 03/18/18 15:35 Amlodipine Besylate (Norvasc) 10 mg PO DAILY [facility] Stop: 03/19/18 08:59 Last Admin: 01/29/18 17:21 Dose: Not Given Atorvastatin Calcium (Lipitor) 20 mg PO DAILY [facility]; Protocol Stop: 03/19/18 08:59 Last Admin: 01/29/18 09:21 Dose: 20 mg Donepezil HCl (Aricept) 10 mg PO HS [facility] Stop: 03/18/18 20:59 Last Admin: 01/29/18 20:49 Dose: 10 mg Epoetin Lee (Epogen) 5,000 units SUBQ MoWeFr [facility] Stop: 03/24/18 12:14 Last Admin: 01/28/18 17:24 Dose: 5,000 units Ferrous Sulfate (Iron) 325 mg PO BID [facility] Stop: 03/20/18 16:59 Last Admin: 01/29/18 17:22 Dose: 325 mg Fluoxetine HCl (Prozac) 20 mg PO DAILY [facility]; Protocol Stop: 03/19/18 16:59 Last Admin: 01/29/18 09:22 Dose: 20 mg Insulin Detemir (Levemir Insulin) 10 units SUBQ HS [facility]; Protocol Stop: 03/18/18 20:59 Last Admin: 01/29/18 20:50 Dose: 10 units Magnesium Hydroxide (Milk Of Magnesia) 30 ml PO HS PRN PRN Reason: Constipation Metoprolol Tartrate (Lopressor) 25 mg PO BID [facility] Stop: 03/18/18 16:59 Last Admin: 01/29/18 17:22 Dose: Not Given Multivitamins/Vitamin C (Theragran) 1 tab PO DAILY [facility] Stop: 03/19/18 08:59 Last Admin: 01/29/18 09:22 Dose: 1 tab Ropinirole HCl (Requip) 1 mg PO DAILY [facility] Stop: 03/19/18 08:59 Last Admin: 01/29/18 09:22 Dose: 1 mg Sitagliptin Phosphate (Januvia) 100 mg PO DAILY [facility] Stop: 03/19/18 08:59 Last Admin: 01/29/18 09:23 Dose: 100 mg General: Alert, Other (Confused) HEENT: Atraumatic Neck: Supple Cardiovascular: Regular rate Lungs: Clear to auscultation Abdomen: Bowel sounds, Soft Extremities: Other (No edema) Neurological: Other (Unstable gait) Skin: Other (Warm and dry) Psych/Mental Status: Other (Confused) Assessment/Plan - Assessment Assessment: Patient is awake, alert, confused. Creatinine continuing improving. Dx: Psychosis, Dementia, Legally blind, HTN, DM, CKD. - Plan Plan: Patient is under Psychiatric care, will continue with Home meds. Patient follow by Nephro. Will continue to monitor. Nutritional Asmnt/Malnutr-PDOC - Dietary Evaluation Malnutrition Findings (Please click <Entered> for more info): Nutritional Asmnt/Malnutrition Start: 01/21/18 14: 27 Text: Status: Complete Freq: Protocol: Document 01/21/18 14:27 LCHENG (Rec: 01/21/18 14:35 [email or web address]) Nutritional Asmnt/Malnutrition Patient General Information Nutritional Screening Moderate Risk Diagnosis psychosis Pertinent Medical Hx/Surgical Hx CAD, HTN, psychosis, dementia, chronic renal insuff Subjective Information Pt seen lying in bed at time of visit, awake. Pt reported appetite good, food ok. Per EMR, PO intake 100% of meals. No wt record in EMR. Current Diet Order/ Nutrition Support low sodium 2gm Pertinent Medications lipitor, iron, levemir, theragran, januvia Pertinent Labs 01/19 BUN 28, Cr 2.3, glucose 89, A1c 6.7, POC 212 7/1 POC 151 Nutritional Hx/Data Height 1.68 m Height (Calculated Centimeters) 167.6 GI Symptoms Skin Integrity/Comment: intact Current %PO Good (75-100%) Estimated Nutritional Goals Calories/Kcals/Kg 25-30 based on IBW 59kg Kcals Calculated 1491-8896 Protein g/k.6-0.8 Protein Calculated 35-47 Fluid: ml 1475-1770ml (1ml/kcal) Nutritional Problem 1. Problem Problem altered nutrition related labs Etiology endocrine dysfunction, chronic renal insuff Signs/Symptoms: POC 151-212, A1c 6.7, BUN 28, Cr 2.3 Malnutrition Alert Is there a minimum of two criteria No selected? Query Text:Check all the applicable criteria. A minimum of two criteria are recommended for diagnosis of either severe or non-severe malnutrition. Malnutrition Related to Morbid Obesity Malnutrition related to morbid obesity No Intervention/Recommendation Comments 1. Consider renal diet d/t elevated BUN and Crea. If glucose continue high, will consider adding CCHO diet. 2. Monitor PO intake, wt, labs and skin integrity 3. F/U as low risk in 7 days, 01/28 Expected Outcomes/Goals Expected Outcomes/Goals 1. PO intake to meet at least 75% of nutritional needs. 2. Wt stability, skin to remain intact, labs to approach WNL.
[2018-01-30] MEDS: Multivitamin Tab PO SCH (09:44)
[2018-01-30] MEDS: Atorvastatin Calcium 10 MG TAB PO SCH (09:44)
[2018-01-30] MEDS: Ferrous Sulfate 325 MG TAB PO SCH (09:45)
--- NOTE | 2018-01-30 15:56 | Discharge Summary ---
DATE OF DISCHARGE: 01/30/2018 IDENTIFYING INFORMATION: The patient is a 67-year-old female. CHIEF COMPLAINT: No answer. HISTORY OF PRESENT ILLNESS: The patient brought in on a hold for grave disability and the [facility] person wanted to do a well-check on her and the patient was noted to be completely declining, unable to provide for self-care. She was unable to make safe plan for self-care or take care of herself, full of feces, unable to feed herself and not allowing people to clean her, drinks only fluids, has not eaten for a while, not willing to make plan for self-care or unable to do that. When I talked to her, she was not sure why she was here, unable to give information. She could not tell me the date. She said that it is "she is crazy." She says she drinks vodka once a week, no more than that, but she is not a reliable historian, unpredictable, impulsive, demented, confused. The patient has already been on Prozac. Denies prior suicide attempt or hospitalization, but she is not a reliable historian. The patient is legally blind and has hypertension, coronary artery disease. No known drug allergy. COURSE IN THE HOSPITAL: The patient's current medication, which is amlodipine 10 mg daily, atorvastatin 20 mg daily, Aricept 10 mg at bedtime, Epogen, iron 325 mg twice a day, Prozac 20 mg daily, insulin 10 units subcutaneous at bedtime, metoprolol 25 mg twice a day, multivitamin, ropinirole one tablet daily and Januvia 100 mg daily. The patient progressively got better. We managed to find her a nursing facility at the beginning. She told me that her family does not come visit her, that they are not involved; however, at the beginning, they wanted her to go to [place]; however, apparently no place was willing to accept in that area, so she ended up going to [facility], which is close. The patient reported that they never visited her or cared about her; however, she is not a reliable historian, so as the patient was cleared, she is not acting anyway dangerous, she was sleeping well, eating well, able to feed herself, no acting out behavior, we felt she will be ready to go to a lesser level of care. FINAL DIAGNOSES: AXIS I: Major depression, recurrent with no psychosis, dementia. MEDICAL DIAGNOSES: Hyperlipidemia, anemia, hypertension, and legally blind. The patient will be going to [facility]. The patient will need help with her ADLs. Will follow up with the psychiatrist, primary care physician and therapist. EXPECTED OUTCOME: Stable if the patient complies with the above. [facility]# [id number]
== END 2018-01-30 12:15 | DRG 885 ==
LOC: GERO2 13:36
PROVIDERS: ADMIT Psychiatry & Neurology Psychiatry; ATTEND Psychiatry & Neurology Psychiatry
DX: F33.9 Major depressive disorder, recurrent, unspecified (principal); F02.80 Dementia in other diseases classified elsewhere, unspecified severity, without behavioral disturbance, psychotic disturbance, mood disturbance, and anxiety; E11.9 Type 2 diabetes mellitus without complications; I25.10 Atherosclerotic heart disease of native coronary artery without angina pectoris; I12.9 Hypertensive chronic kidney disease with stage 1 through stage 4 chronic kidney disease, or unspecified chronic kidney disease; H54.8 Legal blindness, as defined in USA; F29 Unspecified psychosis not due to a substance or known physiological condition; E11.22 Type 2 diabetes mellitus with diabetic chronic kidney disease; D63.1 Anemia in chronic kidney disease; R62.7 Adult failure to thrive; G30.9 Alzheimer's disease, unspecified; E11.21 Type 2 diabetes mellitus with diabetic nephropathy; N18.1 Chronic kidney disease, stage 1
CPT/HCPCS: 36415-UA; 80053-TC; 80061-TC; 82043-90; 82948-90; 83036-90; 83735-TC; 84100-TC; 84443-TC; 85025-TC; G0410; J0885; J1815; Z7610